=== PATIENT | male | born 1960 | race Two or more races ===

== ENCOUNTER 2017-09-14 03:02 | Inpatient (IN) | payer OTHER ==
[2017-09-14] VITALS (10 sets, daily range): BP systolic 116–151; BP diastolic 61–81
[~2017-09-14] VITALS: Ht 170.2 cm; Wt 77.1 kg
[2017-09-14] MEDS: MAGNESIUM SULFATE 1GM/100ML 100 ML IV SCH ×2 (03:10→04:41)
[2017-09-14] MEDS ORDERED: MAGNESIUM SULFATE 1GM/100ML 200 ML IV ONE (03:11)
[2017-09-14] MEDS ORDERED: methylPREDNISolone SOD SUCC 125 MG/2 ML VL ONE (03:11)
[2017-09-14] MEDS ORDERED: cefTRIAXone SOD 1,000 MG VL ONE (03:11)
[2017-09-14] MEDS ORDERED: IPRATROPIUM BROM 0.5 MG/2.5ML INH SOL ONE (03:14)
[2017-09-14] MEDS ORDERED: ALBUTEROL SULF 2.5 MG/0.5ML(0.5%) NEB SOLN ONE (03:14)
[2017-09-14] MEDS ORDERED: cefTRIAXone 1GM/10ml IVPUSH 10 ML IV ONE (03:30)
[2017-09-14] MEDS ORDERED: methylPREDNISolone SOD SUCC 125 MG/2 ML VL IV ONE (03:30)
[2017-09-14] MEDS ORDERED: SUCCINYLCHOLINE CHLORIDE 20 MG/ML 10ML VIAL IV ONE ×2 (03:38→04:15)
[2017-09-14] MEDS ORDERED: PROPOFOL 100 ML IV ONE (03:38)
[2017-09-14] MEDS: PROPOFOL 100 ML IV SCH (03:40)
[2017-09-14] MEDS ORDERED: PROPOFOL 100 ML IV SCH (03:46)
[2017-09-14] MEDS ORDERED: MAGNESIUM SULFATE 1GM/100ML 100 ML IV SCH (04:00)
[2017-09-14] MEDS ORDERED: MIDAZOLAM DRIP 50 mg/50mL 50 ML IV ONE (04:22)
[2017-09-14] MEDS: MIDAZOLAM DRIP 50 mg/50mL 50 ML IV SCH ×2 (04:44→06:50)
[2017-09-14] MEDS ORDERED: FUROSEMIDE 40 MG/4 ML VIAL IV ONE ×2 (04:45→06:30)
[2017-09-14 04:50] LABS: Basophils # (auto) 0.1 uL; Basophils % (auto) 0.5 % (0.0-2.0); Eosinophils # (auto) 0.5 uL; Eosinophils % (auto) 2.3 % (0.0-7.0); Hematocrit 31.2 % (41.0-53.0); Hemoglobin 10.3 g/dL (13.5-17.5); Lymphocytes # (auto) 4.3 uL; Lymphocytes % (auto) 20.8 % (10.0-50.0); Mean Corpuscular Hemoglobin 30.3 pg (28.0-32.0); Mean Corpuscular Hgb Conc. 33.1 g/dL (32.0-36.0); Mean Corpuscular Volume 91.6 fL (80.0-100.0); Monocytes # (auto) 1.1 uL; Monocytes % (auto) 5.5 % (0.0-12.0); Neutrophils # (auto) 14.7 uL; Neutrophils % (auto) 70.9 % (37.0-80.0); Platelet Count (auto) 277 10^3/uL (140-450); Red Cell Distribution Width 15.3 % (11.8-14.3); White Blood Cell 20.8 10^3/uL (4.4-10.8)
[2017-09-14 05:14] LABS: Urine Bacteria MANY /hpf (None Seen); Urine Blood TRACE /uL (Negative); Urine WBC 7 /hpf (0 - 3)
[2017-09-14 05:18] LABS: Albumin 3.4 g/dL (3.4-5.0); BUN/Creatinine Ratio 19.4; Bilirubin, Total 0.3 mg/dL (0.2-1.0); Magnesium 2.7 mg/dL (1.6-2.6); Potassium 3.8 mmol/L (3.5-5.1); Total Protein 7.1 g/dL (6.4-8.2)
[2017-09-14] MEDS ORDERED: LISI40TA PO (05:33)
[2017-09-14] MEDS ORDERED: ONDA4TAB5 PO (05:33)
[2017-09-14] MEDS ORDERED: FURO20TA PO (05:33)
[2017-09-14] MEDS ORDERED: METF-372 PO (05:33)
[2017-09-14] MEDS ORDERED: CLO01T PO (05:33)
[2017-09-14] MEDS ORDERED: ATO40T PO (05:33)
[2017-09-14] MEDS ORDERED: ATEN100T PO (05:33)
[2017-09-14] MEDS ORDERED: DEXTROSE (50%) 50ML SYRG IV PRN (06:30)
[2017-09-14] MEDS: DOXYCYCLINE 100MG/250ML 250 ML IV SCH ×2 (09:53→20:35)
[2017-09-14] MEDS ORDERED: ENOXAPARIN SOD 30 MG/0.3 ML SYRINGE SC SCH (10:00)
[2017-09-14] MEDS: PANTOPRAZOLE 40 MG/10 ML VIAL IV SCH (10:51)
[2017-09-14] MEDS: LISINOPRIL 20 MG TAB PO SCH (10:52)
[2017-09-14] MEDS: ACCU-CHEK COMFORT CURVE STRIP VI SCH ×2 (12:30→18:25)
[2017-09-14] MEDS: InsuLIN REG 1unit/0.01ml Soln (100units/ml) SC SCH ×2 (12:46→18:26)
[2017-09-14] MEDS ORDERED: VANCOMYCIN PER PHARMACY 0 MG IV SCH (15:30)
[2017-09-14] MEDS ORDERED: VANCOMYCIN 1GM/250ML 250 ML IV ONE (15:30)
[2017-09-14] MEDS ORDERED: LEVOFLOXACIN 500MG 100 ML IV ONE (15:30)
[2017-09-14 15:41] LABS: Basophils # (auto) 0 uL; Basophils % (auto) 0.1 % (0.0-2.0); Eosinophils # (auto) 0 uL; Hematocrit 27.9 % (41.0-53.0); Hemoglobin 9.6 g/dL (13.5-17.5); Lymphocytes # (auto) 0.5 uL; Lymphocytes % (auto) 5.1 % (10.0-50.0); Mean Corpuscular Hemoglobin 30.8 pg (28.0-32.0); Mean Corpuscular Hgb Conc. 34.5 g/dL (32.0-36.0); Mean Corpuscular Volume 89.4 fL (80.0-100.0); Monocytes # (auto) 0.2 uL; Monocytes % (auto) 1.8 % (0.0-12.0); Neutrophils # (auto) 8.8 uL; Platelet Count (auto) 219 10^3/uL (140-450); Red Blood Cells 3.12 10^6/uL (4.5-5.90); Red Cell Distribution Width 15.2 % (11.8-14.3); White Blood Cell 9.5 10^3/uL (4.4-10.8)
[2017-09-14 16:04] LABS: Albumin 2.8 g/dL (3.4-5.0); Bilirubin, Total 0.3 mg/dL (0.2-1.0); Calcium 8.2 mg/dL (8.5-10.1); Potassium 4.2 mmol/L (3.5-5.1); Total Protein 6.2 g/dL (6.4-8.2)
[2017-09-14] MEDS: ENOXAPARIN SOD 60 MG/0.6 ML SYRINGE SC SCH (16:13)
[2017-09-14] MEDS: ATORVASTATIN 20 MG TAB PO SCH (21:43)
[2017-09-14] MEDS: CARVEDILOL 3.125 MG TAB NG SCH (21:43)
[2017-09-15] VITALS (12 sets, daily range): BP systolic 107–156; BP diastolic 67–85
[2017-09-15] MEDS: PROPOFOL 100 ML IV SCH ×3 (03:50→17:34)
[2017-09-15] MEDS: ENOXAPARIN SOD 60 MG/0.6 ML SYRINGE SC SCH ×2 (03:50→15:26)
[2017-09-15] MEDS: ACCU-CHEK COMFORT CURVE STRIP VI SCH ×4 (05:37→17:40)
[2017-09-15] MEDS: InsuLIN REG 1unit/0.01ml Soln (100units/ml) SC SCH ×4 (05:44→17:40)
[2017-09-15 06:39] LABS: Basophils # (auto) 0 uL; Basophils % (auto) 0.2 % (0.0-2.0); Eosinophils # (auto) 0 uL; Eosinophils % (auto) 0.1 % (0.0-7.0); Hematocrit 27.7 % (41.0-53.0); Hemoglobin 9.5 g/dL (13.5-17.5); Lymphocytes # (auto) 1.4 uL; Lymphocytes % (auto) 8.6 % (10.0-50.0); Mean Corpuscular Hemoglobin 30.5 pg (28.0-32.0); Mean Corpuscular Hgb Conc. 34.4 g/dL (32.0-36.0); Mean Corpuscular Volume 88.7 fL (80.0-100.0); Monocytes # (auto) 1.7 uL; Monocytes % (auto) 10.4 % (0.0-12.0); Neutrophils # (auto) 13.6 uL; Neutrophils % (auto) 80.7 % (37.0-80.0); Platelet Count (auto) 218 10^3/uL (140-450); Red Blood Cells 3.12 10^6/uL (4.5-5.90); Red Cell Distribution Width 15.9 % (11.8-14.3); White Blood Cell 16.8 10^3/uL (4.4-10.8)
[2017-09-15 06:58] LABS: Albumin 2.7 g/dL (3.4-5.0); Calcium 8.2 mg/dL (8.5-10.1); Potassium 3.7 mmol/L (3.5-5.1)
[2017-09-15 07:01] LABS: BUN/Creatinine Ratio 20.8
[2017-09-15 07:04] LABS: Bilirubin, Total 0.4 mg/dL (0.2-1.0); Total Protein 6.1 g/dL (6.4-8.2)
[2017-09-15] MEDS: MIDAZOLAM DRIP 50 mg/50mL 50 ML IV SCH ×3 (07:57→17:34)
[2017-09-15] MEDS: DOXYCYCLINE 100MG/250ML 250 ML IV SCH (08:05)
[2017-09-15] MEDS: VANCOMYCIN 1GM/250ML 250 ML IV SCH (08:28)
[2017-09-15] MEDS: FUROSEMIDE 40 MG/4 ML VIAL IV SCH (09:23)
[2017-09-15] MEDS: PANTOPRAZOLE 40 MG/10 ML VIAL IV SCH (09:24)
[2017-09-15] MEDS: LISINOPRIL 20 MG TAB PO SCH (09:24)
[2017-09-15] MEDS: LEVOFLOXACIN 250MG 50 ML IV SCH (09:24)
[2017-09-15] MEDS: CARVEDILOL 3.125 MG TAB NG SCH ×2 (09:24→22:12)
[2017-09-15] MEDS ORDERED: ACETAMINOPHEN 650 mg PER 20 mL UD GT ONE (20:45)
[2017-09-15] MEDS: ATORVASTATIN 20 MG TAB PO SCH (22:13)
[2017-09-16] VITALS (12 sets, daily range): BP systolic 128–182; BP diastolic 72–98
[2017-09-16] MEDS: ACCU-CHEK COMFORT CURVE STRIP VI SCH ×4 (00:12→18:02)
[2017-09-16] MEDS: ENOXAPARIN SOD 60 MG/0.6 ML SYRINGE SC SCH ×2 (04:36→16:00)
[2017-09-16 05:54] LABS: Basophils # (auto) 0.1 uL; Basophils % (auto) 0.4 % (0.0-2.0); Eosinophils # (auto) 0.2 uL; Eosinophils % (auto) 1.3 % (0.0-7.0); Hematocrit 30.1 % (41.0-53.0); Hemoglobin 10.2 g/dL (13.5-17.5); Lymphocytes # (auto) 1.8 uL; Lymphocytes % (auto) 12.8 % (10.0-50.0); Mean Corpuscular Hemoglobin 30.4 pg (28.0-32.0); Mean Corpuscular Hgb Conc. 33.8 g/dL (32.0-36.0); Mean Corpuscular Volume 89.9 fL (80.0-100.0); Monocytes # (auto) 1.6 uL; Monocytes % (auto) 11.8 % (0.0-12.0); Neutrophils # (auto) 10.1 uL; Neutrophils % (auto) 73.7 % (37.0-80.0); Platelet Count (auto) 228 10^3/uL (140-450); Red Blood Cells 3.35 10^6/uL (4.5-5.90); Red Cell Distribution Width 15.9 % (11.8-14.3); White Blood Cell 13.8 10^3/uL (4.4-10.8)
[2017-09-16] MEDS: InsuLIN REG 1unit/0.01ml Soln (100units/ml) SC SCH ×4 (06:00→18:00)
[2017-09-16 06:21] LABS: Albumin 2.8 g/dL (3.4-5.0); Calcium 8.7 mg/dL (8.5-10.1); Potassium 4.1 mmol/L (3.5-5.1)
[2017-09-16 06:23] LABS: BUN/Creatinine Ratio 19.7; Total Protein 6.3 g/dL (6.4-8.2)
[2017-09-16 06:26] LABS: Bilirubin, Total 0.4 mg/dL (0.2-1.0)
[2017-09-16] MEDS: VANCOMYCIN 1GM/250ML 250 ML IV SCH (08:51)
[2017-09-16] MEDS: ALBUTEROL SULF 2.5 MG/0.5ML(0.5%) NEB SOLN NEB SCH ×4 (10:17→22:25)
[2017-09-16] MEDS: IPRATROPIUM BROM 0.5 MG/2.5ML INH SOL NEB SCH ×4 (10:17→22:25)
[2017-09-16] MEDS: PANTOPRAZOLE 40 MG/10 ML VIAL IV SCH (12:11)
[2017-09-16] MEDS: CARVEDILOL 3.125 MG TAB NG SCH ×2 (12:11→22:48)
[2017-09-16] MEDS: FUROSEMIDE 40 MG/4 ML VIAL IV SCH (12:11)
[2017-09-16] MEDS: LISINOPRIL 20 MG TAB PO SCH (12:12)
[2017-09-16] MEDS: LEVOFLOXACIN 250MG 50 ML IV SCH (12:13)
[2017-09-16] MEDS: LABETALOL HCL 5 MG/ML ML 20ML VIAL IV PRN (15:30)
[2017-09-16] MEDS ORDERED: ACETAMINOPHEN 650 mg PER 20 mL UD ONE (18:34)
[2017-09-16] MEDS ORDERED: ACETAMINOPHEN 650 mg PER 20 mL UD GT PRN (18:45)
[2017-09-16] MEDS: MIDAZOLAM HCL 1MG/1ML-2 ML VIAL IV PRN ×2 (19:43→23:19)
[2017-09-16] MEDS ORDERED: IBUPROFEN 600 MG TAB PO ONE ×2 (21:56→22:00)
[2017-09-16] MEDS: ATORVASTATIN 20 MG TAB PO SCH (22:48)
[2017-09-17] VITALS (7 sets, daily range): BP systolic 100–188; BP diastolic 53–95
[2017-09-17] MEDS: ACCU-CHEK COMFORT CURVE STRIP VI SCH ×4 (00:29→18:00)
[2017-09-17] MEDS: MIDAZOLAM HCL 1MG/1ML-2 ML VIAL IV PRN (02:00)
[2017-09-17] MEDS: ALBUTEROL SULF 2.5 MG/0.5ML(0.5%) NEB SOLN NEB SCH ×6 (02:32→22:27)
[2017-09-17] MEDS: IPRATROPIUM BROM 0.5 MG/2.5ML INH SOL NEB SCH ×6 (02:32→22:27)
[2017-09-17] MEDS: MIDAZOLAM DRIP 50 mg/50mL 50 ML IV SCH (03:58)
[2017-09-17] MEDS: ENOXAPARIN SOD 60 MG/0.6 ML SYRINGE SC SCH ×2 (04:01→17:06)
[2017-09-17 04:58] LABS: Basophils # (auto) 0.3 uL; Basophils % (auto) 2.2 % (0.0-2.0); Eosinophils # (auto) 0.4 uL; Eosinophils % (auto) 2.7 % (0.0-7.0); Hematocrit 32.8 % (41.0-53.0); Hemoglobin 11.5 g/dL (13.5-17.5); Lymphocytes # (auto) 1.6 uL; Lymphocytes % (auto) 12.3 % (10.0-50.0); Mean Corpuscular Hemoglobin 31.6 pg (28.0-32.0); Mean Corpuscular Hgb Conc. 35.1 g/dL (32.0-36.0); Mean Corpuscular Volume 90.2 fL (80.0-100.0); Monocytes # (auto) 1.5 uL; Monocytes % (auto) 11.6 % (0.0-12.0); Neutrophils # (auto) 9.2 uL; Neutrophils % (auto) 71.2 % (37.0-80.0); Platelet Count (auto) 233 10^3/uL (140-450); Red Blood Cells 3.64 10^6/uL (4.5-5.90); Red Cell Distribution Width 15.6 % (11.8-14.3)
[2017-09-17] MEDS: PROPOFOL 100 ML IV SCH (04:59)
[2017-09-17 05:17] LABS: Albumin 2.6 g/dL (3.4-5.0); Potassium 3.9 mmol/L (3.5-5.1)
[2017-09-17 05:20] LABS: BUN/Creatinine Ratio 19.1
[2017-09-17 05:26] LABS: Bilirubin, Total 0.9 mg/dL (0.2-1.0)
[2017-09-17 05:35] LABS: Total Protein 6.6 g/dL (6.4-8.2)
[2017-09-17] MEDS: InsuLIN REG 1unit/0.01ml Soln (100units/ml) SC SCH ×4 (06:00→18:00)
[2017-09-17] MEDS: FUROSEMIDE 40 MG/4 ML VIAL IV SCH (09:19)
[2017-09-17] MEDS: VANCOMYCIN 1GM/250ML 250 ML IV SCH (09:19)
[2017-09-17] MEDS: CARVEDILOL 3.125 MG TAB NG SCH ×2 (09:19→21:36)
[2017-09-17] MEDS: PANTOPRAZOLE 40 MG/10 ML VIAL IV SCH (09:19)
[2017-09-17] MEDS: LEVOFLOXACIN 250MG 50 ML IV SCH (09:19)
[2017-09-17] MEDS: LISINOPRIL 20 MG TAB PO SCH (09:20)
[2017-09-17] MEDS: LABETALOL HCL 5 MG/ML ML 20ML VIAL IV PRN ×2 (12:19→17:49)
[2017-09-17] MEDS: LORazepam 2MG/ML-1ML VIAL IV PRN (17:05)
[2017-09-17] MEDS: ATORVASTATIN 20 MG TAB PO SCH (21:36)
[2017-09-18] MEDS: ACCU-CHEK COMFORT CURVE STRIP VI SCH ×4 (00:13→18:09)
[2017-09-18] MEDS: ALBUTEROL SULF 2.5 MG/0.5ML(0.5%) NEB SOLN NEB SCH ×6 (02:18→22:54)
[2017-09-18] MEDS: IPRATROPIUM BROM 0.5 MG/2.5ML INH SOL NEB SCH ×6 (02:18→22:54)
[2017-09-18] MEDS: PROPOFOL 100 ML IV SCH (03:33)
[2017-09-18] MEDS: MIDAZOLAM DRIP 50 mg/50mL 50 ML IV SCH (03:33)
[2017-09-18] MEDS: ENOXAPARIN SOD 60 MG/0.6 ML SYRINGE SC SCH (03:34)
[2017-09-18 04:49] VITALS: BP 168/84
[2017-09-18] MEDS: InsuLIN REG 1unit/0.01ml Soln (100units/ml) SC SCH ×4 (05:45→18:09)
[2017-09-18] MEDS: LABETALOL HCL 5 MG/ML ML 20ML VIAL IV PRN ×2 (05:46→21:51)
[2017-09-18 05:53] LABS: Basophils # (auto) 0.1 uL; Basophils % (auto) 0.5 % (0.0-2.0); Eosinophils # (auto) 0.3 uL; Eosinophils % (auto) 2.6 % (0.0-7.0); Hematocrit 33.2 % (41.0-53.0); Hemoglobin 11.3 g/dL (13.5-17.5); Lymphocytes # (auto) 1.6 uL; Lymphocytes % (auto) 14.3 % (10.0-50.0); Mean Corpuscular Hemoglobin 30.3 pg (28.0-32.0); Monocytes # (auto) 1.4 uL; Monocytes % (auto) 12.6 % (0.0-12.0); Neutrophils # (auto) 7.9 uL; Platelet Count (auto) 249 10^3/uL (140-450); Red Blood Cells 3.73 10^6/uL (4.5-5.90); Red Cell Distribution Width 15.3 % (11.8-14.3); White Blood Cell 11.3 10^3/uL (4.4-10.8)
[2017-09-18 06:28] LABS: Albumin 3.1 g/dL (3.4-5.0); BUN/Creatinine Ratio 25.3; Bilirubin, Total 0.7 mg/dL (0.2-1.0); Calcium 8.9 mg/dL (8.5-10.1); Potassium 3.5 mmol/L (3.5-5.1); Total Protein 7.1 g/dL (6.4-8.2)
[2017-09-18 09:00] VITALS: BP 165/91
[2017-09-18] MEDS: PANTOPRAZOLE 40 MG/10 ML VIAL IV SCH (09:37)
[2017-09-18] MEDS: LISINOPRIL 20 MG TAB PO SCH (09:39)
[2017-09-18] MEDS: CARVEDILOL 3.125 MG TAB NG SCH ×2 (09:40→21:50)
[2017-09-18] MEDS: FUROSEMIDE 20 MG/2 ML VIAL IV SCH (09:44)
[2017-09-18] MEDS: LINEZOLID 600MG/300ML 300 ML IV SCH ×2 (10:00→21:49)
[2017-09-18] MEDS ORDERED: IOHEXOL 350 MG/ML 100ML IJ ONE (11:49)
[2017-09-18] MEDS ORDERED: LIDOCAINE 2%HCL (LOCAL ANESTH.) INJ 20ML MDV ONE (11:49)
[2017-09-18 11:51] VITALS: BP 149/79
[2017-09-18] MEDS: LORazepam 2MG/ML-1ML VIAL IV PRN ×2 (12:45→21:51)
[2017-09-18] MEDS ORDERED: fentaNYL CITRATE 100 MCG/2 ML VL ONE (14:41)
[2017-09-18] MEDS ORDERED: IODIXANOL 320MG/ML 100ML BTL IV ONE (14:47)
[2017-09-18 16:24] VITALS: BP 166/93
[2017-09-18 21:32] VITALS: BP 164/96
[2017-09-18] MEDS: ATORVASTATIN 20 MG TAB PO SCH (21:50)
[2017-09-19] MEDS: InsuLIN REG 1unit/0.01ml Soln (100units/ml) SC SCH ×4 (00:44→18:00)
[2017-09-19] MEDS: IPRATROPIUM BROM 0.5 MG/2.5ML INH SOL NEB SCH ×5 (02:00→18:35)
[2017-09-19] MEDS: ALBUTEROL SULF 2.5 MG/0.5ML(0.5%) NEB SOLN NEB SCH ×5 (02:00→18:35)
[2017-09-19 05:09] VITALS: BP 164/81
[2017-09-19 05:20] LABS: Basophils # (auto) 0.1 uL; Basophils % (auto) 0.4 % (0.0-2.0); Eosinophils # (auto) 0.4 uL; Eosinophils % (auto) 3.4 % (0.0-7.0); Hematocrit 32.8 % (41.0-53.0); Hemoglobin 10.9 g/dL (13.5-17.5); Lymphocytes # (auto) 1.4 uL; Lymphocytes % (auto) 12.4 % (10.0-50.0); Mean Corpuscular Hgb Conc. 33.2 g/dL (32.0-36.0); Mean Corpuscular Volume 90.5 fL (80.0-100.0); Monocytes # (auto) 1.4 uL; Monocytes % (auto) 12.3 % (0.0-12.0); Neutrophils # (auto) 8.2 uL; Neutrophils % (auto) 71.5 % (37.0-80.0); Platelet Count (auto) 257 10^3/uL (140-450); Red Blood Cells 3.62 10^6/uL (4.5-5.90); Red Cell Distribution Width 14.7 % (11.8-14.3); White Blood Cell 11.5 10^3/uL (4.4-10.8)
[2017-09-19 05:40] LABS: Albumin 3.1 g/dL (3.4-5.0); Calcium 8.8 mg/dL (8.5-10.1); Potassium 3.2 mmol/L (3.5-5.1)
[2017-09-19 05:43] LABS: Bilirubin, Total 0.7 mg/dL (0.2-1.0); Total Protein 7.5 g/dL (6.4-8.2)
[2017-09-19] MEDS: ACCU-CHEK COMFORT CURVE STRIP VI SCH ×4 (06:17→18:00)
[2017-09-19] MEDS: LABETALOL HCL 5 MG/ML ML 20ML VIAL IV PRN (06:18)
[2017-09-19 08:26] VITALS: BP 105/63
[2017-09-19] MEDS ORDERED: POTASSIUM CHL 10% (20 MEQ/15ML) 15ml ORAL SOLN PO ONE (11:00)
[2017-09-19] MEDS: LINEZOLID 600MG/300ML 300 ML IV SCH (11:19)
[2017-09-19] MEDS: CARVEDILOL 3.125 MG TAB NG SCH (11:19)
[2017-09-19] MEDS: PANTOPRAZOLE 40 MG/10 ML VIAL IV SCH (11:19)
[2017-09-19] MEDS: FUROSEMIDE 20 MG/2 ML VIAL IV SCH (11:19)
[2017-09-19] MEDS: LISINOPRIL 20 MG TAB PO SCH (11:20)
[2017-09-19 12:07] VITALS: BP 126/70
[2017-09-19 16:06] VITALS: BP 121/68
[2017-09-19 20:06] VITALS: BP 121/68
== END 2017-09-19 21:00 | disposition short-term general hospital (02) | DRG 871 ==
LOC: EDBD 03:02 → ER 03:02 → TELE 03:03 → TELE-EAST 09-17 18:02
PROVIDERS: ADMIT Nurse Practitioner Family; ATTEND Family Medicine
PROC: 5A1945Z Respiratory Ventilation, 24-96 Consecutive Hours (ICD-10-PCS; principal; 2017-09-14)
PROC: 0BH17EZ Insertion of Endotracheal Airway into Trachea, Via Natural or Artificial Opening (ICD-10-PCS; 2017-09-14)
PROC: B2151ZZ Fluoroscopy of Left Heart using Low Osmolar Contrast (ICD-10-PCS; 2017-09-18)
PROC: 4A023N7 Measurement of Cardiac Sampling and Pressure, Left Heart, Percutaneous Approach (ICD-10-PCS; 2017-09-18)
PROC: B2111ZZ Fluoroscopy of Multiple Coronary Arteries using Low Osmolar Contrast (ICD-10-PCS; 2017-09-18)
DX: A41.1 Sepsis due to other specified staphylococcus (principal); R65.21 Severe sepsis with septic shock; J96.02 Acute respiratory failure with hypercapnia; J18.9 Pneumonia, unspecified organism; I50.33 Acute on chronic diastolic (congestive) heart failure; E87.2 Acidosis; M86.671 Other chronic osteomyelitis, right ankle and foot; L97.828 Non-pressure chronic ulcer of other part of left lower leg with other specified severity; L97.818 Non-pressure chronic ulcer of other part of right lower leg with other specified severity; I11.0 Hypertensive heart disease with heart failure; I25.5 Ischemic cardiomyopathy; E11.65 Type 2 diabetes mellitus with hyperglycemia; E11.51 Type 2 diabetes mellitus with diabetic peripheral angiopathy without gangrene; E11.622 Type 2 diabetes mellitus with other skin ulcer; E78.5 Hyperlipidemia, unspecified; D64.9 Anemia, unspecified; F41.9 Anxiety disorder, unspecified; I25.10 Atherosclerotic heart disease of native coronary artery without angina pectoris; E11.69 Type 2 diabetes mellitus with other specified complication; R79.1 Abnormal coagulation profile; Z87.01 Personal history of pneumonia (recurrent); Z82.49 Family history of ischemic heart disease and other diseases of the circulatory system; Z79.84 Long term (current) use of oral hypoglycemic drugs; Z79.899 Other long term (current) drug therapy
CPT/HCPCS: 31500; 36415; 36600; 51702; 71045; 73700; 73718; 80053; 80202; 81001; 82805; 82962; 83036; 83605; 83735; 83880; 84484; 85025; 85379; 86850; 86900; 86901; 87040; 87070; 87077; 87186; 87205; 93306; 93458; 93970; 94002; 94003; 94640; 96365; 96375; 97163; 99152; 99291; C9113; J0330; J0696; J1815; J1956; J2250; J2704; J3490; Q9967

== ENCOUNTER → 2019-02-24 | Outpatient (CLI) | payer OTHER ==
[~2019-02-24] MED LIST: ATEN100T PO; ATO40T PO; CLO01T PO; FURO1TAB33 PO; LISI40TA PO; METF-372 PO; ONDA-144 PO
[2019-02-24 07:40] LABS: Basophils # (auto) 0.1 uL; Basophils % (auto) 0.7 % (0.0-2.0); Eosinophils # (auto) 0.4 uL; Eosinophils % (auto) 3.8 % (0.0-7.0); Hematocrit 37.3 % (41.0-53.0); Hemoglobin 12.6 g/dL (13.5-17.5); Lymphocytes # (auto) 1.7 uL; Mean Corpuscular Hemoglobin 30.3 pg (28.0-32.0); Mean Corpuscular Hgb Conc. 33.6 g/dL (32.0-36.0); Mean Corpuscular Volume 90.1 fL (80.0-100.0); Monocytes % (auto) 9.2 % (0.0-12.0); Neutrophils # (auto) 7.3 uL; Neutrophils % (auto) 70.3 % (37.0-80.0); Platelet Count (auto) 225 10^3/uL (140-450); Red Blood Cells 4.14 10^6/uL (4.5-5.90); Red Cell Distribution Width 13.1 % (11.8-14.3); White Blood Cell 10.4 10^3/uL (4.4-10.8)
[2019-02-24 07:47] LABS: Urine Bacteria MANY /hpf (None Seen); Urine Blood TRACE /uL (Negative); Urine Mucus FEW (None Seen); Urine Specific Gravity 1.009 (1.001-1.035); Urine WBC 1 /hpf (0 - 3)
[2019-02-24 08:28] LABS: Albumin 3.2 g/dL (3.4-5.0); Calcium 8.9 mg/dL (8.5-10.1); Potassium 4.4 mmol/L (3.5-5.1)
[2019-02-24 08:34] LABS: Folate (Folic Acid) 10.93 ng/mL (5.38-24)
[2019-02-24 08:35] LABS: Bilirubin, Total 0.7 mg/dL (0.2-1.0); Total Protein 7.2 g/dL (6.4-8.2)
== END | disposition home or self-care (01) ==
LOC: LAB 07:24
PROVIDERS: ATTEND Nurse Practitioner
DX: Z00.00 Encounter for general adult medical examination without abnormal findings (principal); E78.5 Hyperlipidemia, unspecified; E11.9 Type 2 diabetes mellitus without complications; I10 Essential (primary) hypertension
CPT/HCPCS: 36415; 80053; 80061; 81001; 82043; 82306; 82607; 82746; 83036; 83880; 84443; 85025

== ENCOUNTER → 2020-04-12 | Outpatient (CLI) | payer MEDICARE, OTHER ==
[~2020-04-12] MED LIST changes: -LISI40TA PO; +LISI40TA11 PO
== END | disposition home or self-care (01) ==
LOC: XY 09:58
PROVIDERS: ATTEND Podiatrist
DX: I70.201 Unspecified atherosclerosis of native arteries of extremities, right leg (principal); I77.9 Disorder of arteries and arterioles, unspecified
CPT/HCPCS: 93925

== ENCOUNTER → 2020-04-25 | Outpatient (CLI) | payer MEDICARE, OTHER ==
[~2020-04-25] MED LIST changes: +FUROSEMIDE 100 MG/10ML VIAL IV ONE; +FUROSEMIDE INJECTION 10 ML ONE; +POTASSIUM CHL 10 Meq TABLET PO ONE
[2020-04-25 10:55] VITALS: BP 154/100
[2020-04-25 13:10] VITALS: BP 145/89
[2020-04-25 15:22] LABS: Urine Blood 1+ /uL (Negative); Urine Specific Gravity 1.018 (1.001-1.035)
[2020-04-25 15:33] LABS: Albumin 1.9 g/dL (3.4-5.0)
[2020-04-25 15:41] LABS: Bilirubin, Direct 0.3 mg/dL (0-0.2); Bilirubin, Total 0.7 mg/dL (0.2-1.0); Total Protein 6.7 g/dL (6.4-8.2)
[2020-04-25 15:45] LABS: Basophils # (auto) 0 10 ^3/uL (0-0.2); Basophils % (auto) 0.3 % (0.0-2.0); Eosinophils # (auto) 0.1 10 ^3/uL (0-0.8); Eosinophils % (auto) 1.4 % (0.0-7.0); Hemoglobin 15.3 g/dL (13.5-17.5); Lymphocytes % (auto) 10.7 % (10.0-50.0); Mean Corpuscular Hemoglobin 30.5 pg (28.0-32.0); Mean Corpuscular Hgb Conc. 33.3 g/dL (32.0-36.0); Mean Corpuscular Volume 91.7 fL (80.0-100.0); Monocytes # (auto) 0.9 10 ^3/uL (0-1.3); Monocytes % (auto) 9.7 % (0.0-12.0); Neutrophils # (auto) 7.5 10 ^3/uL (1.6-8.6); Neutrophils % (auto) 77.9 % (37.0-80.0); Platelet Count (auto) 282 10^3/uL (140-450); Red Blood Cells 5.02 10^6/uL (4.5-5.90); Red Cell Distribution Width 14.2 % (11.8-14.3); White Blood Cell 9.6 10^3/uL (4.4-10.8)
== END | disposition home or self-care (01) ==
LOC: Rad HDHVI 10:53
PROVIDERS: ATTEND Internal Medicine Cardiovascular Disease
DX: C61 Malignant neoplasm of prostate (principal); D51.3 Other dietary vitamin B12 deficiency anemia; I11.0 Hypertensive heart disease with heart failure; I50.33 Acute on chronic diastolic (congestive) heart failure; E11.9 Type 2 diabetes mellitus without complications; E55.9 Vitamin D deficiency, unspecified; R00.2 Palpitations; R53.1 Weakness; R30.0 Dysuria
CPT/HCPCS: 36415; 80048; 80061; 80076; 81003; 82306; 83036; 83880; 84153; 84403; 84443; 85025; 93306; 96374; G0463; J1940

== ENCOUNTER → 2020-04-27 | Outpatient (CLI) | payer MEDICARE, OTHER ==
[~2020-04-27] VITALS: Ht 172.7 cm; Wt 92.5 kg
[~2020-04-27] MED LIST changes: +ADENOSINE 78 MG in GIVE UN-DILUTED 0 ML IV ONE; +ADENOSINE 90 MG/30 ML INJ IV ONE; +CARV6.2551 PO; +CLIN-203 PO; +CLOP75TA70 PO; +DIGO0.12 PO; +FURO40TA4 PO; -FUROSEMIDE 100 MG/10ML VIAL IV ONE; -FUROSEMIDE INJECTION 10 ML ONE; +HYDR200T36 PO; +METO5TAB5 PO; +POTA-220; -POTASSIUM CHL 10 Meq TABLET PO ONE; +SACU1TAB PO; +SERT25TA14 PO
== END | disposition home or self-care (01) ==
LOC: Rad HDHVI 13:23
PROVIDERS: ATTEND Internal Medicine Cardiovascular Disease
DX: I10 Essential (primary) hypertension (principal); E78.00 Pure hypercholesterolemia, unspecified; E11.9 Type 2 diabetes mellitus without complications; Z82.49 Family history of ischemic heart disease and other diseases of the circulatory system
CPT/HCPCS: 78452; 93005; 96374; 96375; A9500; J0153

== ENCOUNTER → 2020-05-09 | Outpatient (CLI) | payer MEDICARE ==
[~2020-05-09] MED LIST changes: -ADENOSINE 78 MG in GIVE UN-DILUTED 0 ML IV ONE; -ADENOSINE 90 MG/30 ML INJ IV ONE; -CARV6.2551 PO; -CLIN-203 PO; -CLOP75TA70 PO; +CYANOCOBALAMIN (B-12) 1000 MCG/1 ML VIAL IM ONE; +CYANOCOBALAMIN (B-12) 1000 MCG/1 ML VIAL ONE; -DIGO0.12 PO; -FURO40TA4 PO; +FUROSEMIDE INJECTION 10 ML ONE; +FUROSEMIDE INJECTION 100 MG in SODIUM CHL 0.9% 100 ML IV ONE; -HYDR200T36 PO; -METO5TAB5 PO; +ONDANSETRON HCL 4 MG/2 ML VIAL IV ONE; +ONDANSETRON HCL 4 MG/2 ML VIAL ONE; -POTA-220; +POTASSIUM CHL 10 Meq TABLET PO ONE; +POTASSIUM CHL 20 Meq TABLET PO ONE; -SACU1TAB PO; -SERT25TA14 PO; +TESTOSTERONE CYPIONATE 200 MG/ML 1ML VIAL IM ONE
[2020-05-09 13:17] VITALS: BP 148/95
[2020-05-09 14:00] LABS: Albumin 1.7 g/dL (3.4-5.0); Calcium 8.1 mg/dL (8.5-10.1); Magnesium 2.3 mg/dL (1.6-2.6)
[2020-05-09 14:03] LABS: BUN/Creatinine Ratio 16.1; Bilirubin, Total 0.6 mg/dL (0.2-1.0); Total Protein 6.3 g/dL (6.4-8.2)
[2020-05-09 14:13] LABS: Basophils # (auto) 0 10 ^3/uL (0-0.2); Basophils % (auto) 0.4 % (0.0-2.0); Eosinophils # (auto) 0.8 10 ^3/uL (0-0.8); Eosinophils % (auto) 8.8 % (0.0-7.0); Hematocrit 40.9 % (41.0-53.0); Hemoglobin 13.7 g/dL (13.5-17.5); Lymphocytes # (auto) 0.8 10 ^3/uL (0.4-5.4); Lymphocytes % (auto) 9.2 % (10.0-50.0); Mean Corpuscular Hemoglobin 30.8 pg (28.0-32.0); Mean Corpuscular Hgb Conc. 33.6 g/dL (32.0-36.0); Mean Corpuscular Volume 91.9 fL (80.0-100.0); Monocytes # (auto) 0.8 10 ^3/uL (0-1.3); Monocytes % (auto) 9.3 % (0.0-12.0); Neutrophils # (auto) 6.4 10 ^3/uL (1.6-8.6); Neutrophils % (auto) 72.3 % (37.0-80.0); Platelet Count (auto) 334 10^3/uL (140-450); Red Blood Cells 4.45 10^6/uL (4.5-5.90); Red Cell Distribution Width 14.3 % (11.8-14.3); White Blood Cell 8.8 10^3/uL (4.4-10.8)
[2020-05-09 14:17] VITALS: BP 154/95
[2020-05-09 16:00] VITALS: BP 152/101
== END | disposition home or self-care (01) ==
LOC: CHF HDHVI 12:40
PROVIDERS: ATTEND Internal Medicine Cardiovascular Disease
DX: I11.0 Hypertensive heart disease with heart failure (principal); I50.23 Acute on chronic systolic (congestive) heart failure; E29.1 Testicular hypofunction; E11.9 Type 2 diabetes mellitus without complications; R53.83 Other fatigue; R11.0 Nausea
CPT/HCPCS: 36415; 71046; 80053; 83735; 83880; 85025; 93005; 96365; 96366; 96372; 96375; G0463; J1071; J1940; J2405; J3420

== ENCOUNTER → 2020-05-16 | Outpatient (CLI) | payer MEDICARE ==
[2020-05-16] VITALS (9 sets, daily range): BP systolic 138–180; BP diastolic 82–93
[~2020-05-16] MED LIST changes: -CYANOCOBALAMIN (B-12) 1000 MCG/1 ML VIAL IM ONE; -CYANOCOBALAMIN (B-12) 1000 MCG/1 ML VIAL ONE; +DOBUTamine 1000MCG/ML 250 ML IV ONE; +FUROSEMIDE 40 MG/4 ML VIAL ONE; -ONDANSETRON HCL 4 MG/2 ML VIAL IV ONE; -ONDANSETRON HCL 4 MG/2 ML VIAL ONE; -TESTOSTERONE CYPIONATE 200 MG/ML 1ML VIAL IM ONE
[2020-05-16 13:47] LABS: Basophils # (auto) 0.1 10 ^3/uL (0-0.2); Basophils % (auto) 0.6 % (0.0-2.0); Eosinophils # (auto) 0.7 10 ^3/uL (0-0.8); Eosinophils % (auto) 7.8 % (0.0-7.0); Hematocrit 39.7 % (41.0-53.0); Hemoglobin 13.3 g/dL (13.5-17.5); Lymphocytes % (auto) 10.7 % (10.0-50.0); Mean Corpuscular Hemoglobin 30.8 pg (28.0-32.0); Mean Corpuscular Hgb Conc. 33.6 g/dL (32.0-36.0); Mean Corpuscular Volume 91.7 fL (80.0-100.0); Monocytes # (auto) 0.9 10 ^3/uL (0-1.3); Monocytes % (auto) 9.6 % (0.0-12.0); Neutrophils # (auto) 6.8 10 ^3/uL (1.6-8.6); Neutrophils % (auto) 71.3 % (37.0-80.0); Nucleated Red Blood Cells % 0.1 %; Platelet Count (auto) 319 10^3/uL (140-450); Red Blood Cells 4.33 10^6/uL (4.5-5.90); Red Cell Distribution Width 15.3 % (11.8-14.3); White Blood Cell 9.6 10^3/uL (4.4-10.8)
[2020-05-16 13:58] LABS: Albumin 1.6 g/dL (3.4-5.0); Calcium 7.4 mg/dL (8.5-10.1); Magnesium 2.5 mg/dL (1.6-2.6); Potassium 4.3 mmol/L (3.5-5.1)
[2020-05-16 14:02] LABS: BUN/Creatinine Ratio 19.4; Bilirubin, Total 0.4 mg/dL (0.2-1.0); Total Protein 5.9 g/dL (6.4-8.2)
== END | disposition home or self-care (01) ==
LOC: CHF HDHVI 11:59
PROVIDERS: ATTEND Internal Medicine Cardiovascular Disease
DX: I11.0 Hypertensive heart disease with heart failure (principal); I50.23 Acute on chronic systolic (congestive) heart failure; D64.9 Anemia, unspecified; E11.9 Type 2 diabetes mellitus without complications; E78.00 Pure hypercholesterolemia, unspecified
CPT/HCPCS: 36415; 80053; 83735; 83880; 85025; 96365; 96366; 96367; G0463; J1250; J1940

== ENCOUNTER 2020-05-26 13:10 | Inpatient (IN) | payer MEDICARE ==
[~2020-05-26] VITALS: Ht 172.7 cm; Wt 79.3 kg
[~2020-05-26 13:10] MED LIST changes: -DOBUTamine 1000MCG/ML 250 ML IV ONE; -FUROSEMIDE 40 MG/4 ML VIAL ONE; -FUROSEMIDE INJECTION 10 ML ONE; -FUROSEMIDE INJECTION 100 MG in SODIUM CHL 0.9% 100 ML IV ONE; -POTASSIUM CHL 10 Meq TABLET PO ONE; -POTASSIUM CHL 20 Meq TABLET PO ONE
[2020-05-26] MEDS ORDERED: PIPERACILLIN-TAZOB 3.375GM 100 ML IV ONE (13:15)
[2020-05-26 14:50] LABS: Basophils # (auto) 0.1 10 ^3/uL (0-0.2); Basophils % (auto) 0.4 % (0.0-2.0); Eosinophils # (auto) 0 10 ^3/uL (0-0.8); Eosinophils % (auto) 0.1 % (0.0-7.0); Hematocrit 39.3 % (41.0-53.0); Hemoglobin 13.4 g/dL (13.5-17.5); Lymphocytes # (auto) 0.7 10 ^3/uL (0.4-5.4); Mean Corpuscular Hgb Conc. 34.1 g/dL (32.0-36.0); Mean Corpuscular Volume 90.9 fL (80.0-100.0); Monocytes # (auto) 1.3 10 ^3/uL (0-1.3); Monocytes % (auto) 5.9 % (0.0-12.0); Neutrophils # (auto) 19.5 10 ^3/uL (1.6-8.6); Neutrophils % (auto) 90.6 % (37.0-80.0); Platelet Count (auto) 249 10^3/uL (140-450); Red Blood Cells 4.32 10^6/uL (4.5-5.90); Red Cell Distribution Width 15.9 % (11.8-14.3); White Blood Cell 21.6 10^3/uL (4.4-10.8)
[2020-05-26 15:03] LABS: Albumin 1.3 g/dL (3.4-5.0); Anion Gap 8 (5-15); Blood Urea Nitrogen 52 mg/dL (7-18); Calcium 8.1 mg/dL (8.5-10.1); Carbon Dioxide 23 mmol/L (21-32); Chloride 104 mmol/L (98-107); Glucose 184 mg/dL (74-106); Potassium 3.6 mmol/L (3.5-5.1); Sodium 135 mmol/L (136-145)
[2020-05-26 15:04] LABS: INR 1.07 (0.9-1.15); Partial Thromboplastin Time 29.4 sec (23.0-31.2)
[2020-05-26 15:05] LABS: BUN/Creatinine Ratio 19.4; GFR African American 31 mL/min; GFR Non-African American 26 mL/min
[2020-05-26 15:22] LABS: Alanine Aminotransferase 19 U/L (16-61); Alkaline Phosphatase 148 U/L (45-117); Aspartate Aminotransferase 12 U/L (15-37); Bilirubin, Total 0.7 mg/dL (0.2-1.0); Total Protein 5.5 g/dL (6.4-8.2)
[2020-05-26] MEDS ORDERED: CLINDAMYCIN 600MG IV 50 ML IV ONE (15:30)
[2020-05-26] MEDS ORDERED: CARV6.2551 PO (18:25)
[2020-05-26] MEDS ORDERED: CLOP75TA70 PO (18:25)
[2020-05-26] MEDS ORDERED: METO5TAB56 PO (18:25)
[2020-05-26] MEDS ORDERED: FURO40TA4 PO (18:25)
[2020-05-26] MEDS ORDERED: HYDR200T36 PO (18:25)
[2020-05-26] MEDS ORDERED: CLIN-203 PO (18:25)
[2020-05-26] MEDS ORDERED: SERT-275 PO (18:26)
[2020-05-26] MEDS ORDERED: DIGO0.12 PO (18:26)
[2020-05-26] MEDS ORDERED: SACU1TAB PO (18:26)
[2020-05-26] MEDS ORDERED: POTA-220 (18:26)
[2020-05-26] MEDS ORDERED: LORazepam 0.5 MG TAB PO PRN (21:15)
[2020-05-26] MEDS ORDERED: MORPHINE SULF INJ 2 MG/ML SYRINGE 1ML IV PRN (21:15)
[2020-05-26] MEDS ORDERED: NITROGLYCERIN 0.4 MG SL TAB SL PRN (21:15)
[2020-05-26] MEDS ORDERED: DOCUSATE CALCIUM 240 MG CAP PO PRN (21:15)
[2020-05-26] MEDS ORDERED: TETANUS-DIPTH-ACEL PERTUSSIS 0.5ML SYR Tdap IM ONE (21:15)
[2020-05-26 21:35] LABS: Urine Bacteria FEW /hpf (None Seen); Urine Blood 1+ /uL (Negative); Urine Mucus FEW (None Seen); Urine Specific Gravity 1.022 (1.001-1.035); Urine WBC 5 /hpf (0 - 3)
[2020-05-26] MEDS: LINEZOLID 600MG/300ML 300 ML IV SCH (23:00)
[2020-05-26] MEDS: FUROSEMIDE 40 MG TAB PO SCH (23:03)
[2020-05-26] MEDS: INSULIN LANTUS (GLARGINE) 1 /0.01ml (100units/ml) SC SCH (23:37)
[2020-05-27] MEDS: MEROPENEM 1GM IVPB 100 ML IV SCH ×2 (02:00→12:33)
[2020-05-27] MEDS: FUROSEMIDE 40 MG TAB PO SCH (05:59)
[2020-05-27 07:14] LABS: INR 1.08 (0.9-1.15); Partial Thromboplastin Time 30.7 sec (23.0-31.2)
[2020-05-27 07:20] LABS: Albumin 1.4 g/dL (3.4-5.0); Calcium 8.1 mg/dL (8.5-10.1); Potassium 3.4 mmol/L (3.5-5.1)
[2020-05-27 07:22] LABS: BUN/Creatinine Ratio 18.7; Basophils # (auto) 0.1 10 ^3/uL (0-0.2); Basophils % (auto) 0.5 % (0.0-2.0); Eosinophils # (auto) 0.1 10 ^3/uL (0-0.8); Eosinophils % (auto) 0.4 % (0.0-7.0); Hematocrit 39.9 % (41.0-53.0); Hemoglobin 13.2 g/dL (13.5-17.5); Lymphocytes # (auto) 0.7 10 ^3/uL (0.4-5.4); Lymphocytes % (auto) 4.3 % (10.0-50.0); Mean Corpuscular Hemoglobin 30.3 pg (28.0-32.0); Mean Corpuscular Hgb Conc. 33.1 g/dL (32.0-36.0); Mean Corpuscular Volume 91.5 fL (80.0-100.0); Monocytes # (auto) 1.3 10 ^3/uL (0-1.3); Monocytes % (auto) 7.4 % (0.0-12.0); Neutrophils # (auto) 15.2 10 ^3/uL (1.6-8.6); Neutrophils % (auto) 87.4 % (37.0-80.0); Platelet Count (auto) 265 10^3/uL (140-450); Red Blood Cells 4.36 10^6/uL (4.5-5.90); Red Cell Distribution Width 15.7 % (11.8-14.3); White Blood Cell 17.3 10^3/uL (4.4-10.8)
[2020-05-27 07:25] LABS: Total Protein 5.6 g/dL (6.4-8.2)
[2020-05-27] MEDS ORDERED: POTASSIUM EFFERVESENT TAB 25 MEQ PO SCH (10:00)
[2020-05-27] MEDS ORDERED: FUROSEMIDE 20 MG TAB PO SCH (10:00)
[2020-05-27] MEDS: PANTOPRAZOLE 40 MG TAB PO SCH (10:00)
[2020-05-27] MEDS: DIGOXIN 0.125 MG TAB PO SCH (10:00)
[2020-05-27] MEDS: LINEZOLID 600MG/300ML 300 ML IV SCH ×2 (10:00→22:25)
[2020-05-27] MEDS: ENOXAPARIN SOD 40 MG/0.4 ML SYRINGE SC SCH (10:00)
[2020-05-27] MEDS: CARVEDILOL 3.125 MG TAB PO SCH ×2 (10:00→22:25)
[2020-05-27] MEDS: ONDANSETRON HCL 4 MG/2 ML VIAL IV PRN (13:53)
[2020-05-27] MEDS ORDERED: DOPamine 1600MCG/ML D5W 250 ML IV SCH ×2 (15:30→15:45)
[2020-05-27] MEDS ORDERED: SPIRONOLACTONE 25 MG TAB PO ONE (15:45)
[2020-05-27] MEDS: POTASSIUM CHL 20 Meq TABLET PO SCH ×2 (16:21→22:25)
[2020-05-27] MEDS: FUROSEMIDE INJECTION 100 MG in SODIUM CHL 0.9% 100 ML IV SCH (16:51)
[2020-05-27 17:29] VITALS: BP 127/79
[2020-05-27] MEDS: Glucerna Carbsteady SHAKE Vanilla 8oz PO SCH (18:22)
[2020-05-27] MEDS: DOBUTamine 1000MCG/ML 250 ML IV SCH (21:21)
[2020-05-27] MEDS: INSULIN LANTUS (GLARGINE) 1 /0.01ml (100units/ml) SC SCH (22:00)
[2020-05-27] MEDS ORDERED: DEXTROSE (50%) 50ML SYRG IV ONE (22:30)
[2020-05-27] MEDS: InsuLIN REG 1unit/0.01ml Soln (100units/ml) SC SCH (22:36)
[2020-05-27] MEDS: ACCU-CHEK COMFORT CURVE STRIP VI SCH (22:45)
[2020-05-28] MEDS: MEROPENEM 1GM IVPB 100 ML IV SCH ×2 (00:36→12:00)
[2020-05-28] MEDS: FUROSEMIDE INJECTION 100 MG in SODIUM CHL 0.9% 100 ML IV SCH ×3 (02:48→22:01)
[2020-05-28 05:00] VITALS: BP 137/72
[2020-05-28] MEDS: ACCU-CHEK COMFORT CURVE STRIP VI SCH ×4 (06:25→22:01)
[2020-05-28] MEDS: InsuLIN REG 1unit/0.01ml Soln (100units/ml) SC SCH ×4 (06:25→22:00)
[2020-05-28 07:20] LABS: Basophils # (auto) 0 10 ^3/uL (0-0.2); Basophils % (auto) 0.1 % (0.0-2.0); Eosinophils # (auto) 0.1 10 ^3/uL (0-0.8); Eosinophils % (auto) 0.3 % (0.0-7.0); Hematocrit 37.8 % (41.0-53.0); Hemoglobin 13.1 g/dL (13.5-17.5); Lymphocytes # (auto) 0.8 10 ^3/uL (0.4-5.4); Lymphocytes % (auto) 4.1 % (10.0-50.0); Mean Corpuscular Hemoglobin 31.2 pg (28.0-32.0); Mean Corpuscular Hgb Conc. 34.6 g/dL (32.0-36.0); Mean Corpuscular Volume 90.1 fL (80.0-100.0); Monocytes # (auto) 1.3 10 ^3/uL (0-1.3); Monocytes % (auto) 6.4 % (0.0-12.0); Neutrophils # (auto) 17.9 10 ^3/uL (1.6-8.6); Neutrophils % (auto) 89.1 % (37.0-80.0); Platelet Count (auto) 253 10^3/uL (140-450); Red Cell Distribution Width 15.5 % (11.8-14.3); White Blood Cell 20.1 10^3/uL (4.4-10.8)
[2020-05-28 07:47] LABS: Albumin 1.2 g/dL (3.4-5.0); Calcium 8.1 mg/dL (8.5-10.1); Potassium 3.6 mmol/L (3.5-5.1)
[2020-05-28 07:49] LABS: BUN/Creatinine Ratio 20.2
[2020-05-28] MEDS: Glucerna Carbsteady SHAKE Vanilla 8oz PO SCH ×3 (08:34→18:01)
[2020-05-28 09:00] VITALS: BP 149/79
[2020-05-28] MEDS: LINEZOLID 600MG/300ML 300 ML IV SCH ×2 (10:42→21:27)
[2020-05-28] MEDS: SPIRONOLACTONE 25 MG TAB PO SCH (10:43)
[2020-05-28] MEDS: CARVEDILOL 3.125 MG TAB PO SCH ×2 (10:45→21:26)
[2020-05-28] MEDS: POTASSIUM CHL 20 Meq TABLET PO SCH ×2 (10:46→21:25)
[2020-05-28] MEDS: DIGOXIN 0.125 MG TAB PO SCH ×2 (10:46→21:26)
[2020-05-28] MEDS: PANTOPRAZOLE 40 MG TAB PO SCH ×2 (10:46→21:26)
[2020-05-28] MEDS: ENOXAPARIN SOD 40 MG/0.4 ML SYRINGE SC SCH ×2 (10:47→21:26)
[2020-05-28 13:00] VITALS: BP 95/57
[2020-05-28] MEDS: DOBUTamine 1000MCG/ML 250 ML IV SCH (13:33)
[2020-05-28] MEDS: ACETAMINOPHEN 500 MG TAB PO PRN (16:37)
[2020-05-28 16:41] VITALS: BP 131/69
[2020-05-28 21:43] VITALS: BP 113/62
[2020-05-28] MEDS: INSULIN LANTUS (GLARGINE) 1 /0.01ml (100units/ml) SC SCH (22:00)
[2020-05-29] MEDS: MEROPENEM 1GM IVPB 100 ML IV SCH ×2 (00:13→12:33)
[2020-05-29] MEDS: DOBUTamine 1000MCG/ML 250 ML IV SCH ×2 (03:10→18:45)
[2020-05-29 05:00] VITALS: BP 148/77
[2020-05-29] MEDS: InsuLIN REG 1unit/0.01ml Soln (100units/ml) SC SCH ×4 (06:36→21:27)
[2020-05-29] MEDS: ACCU-CHEK COMFORT CURVE STRIP VI SCH ×4 (06:36→21:28)
[2020-05-29 07:24] LABS: Basophils # (auto) 0 10 ^3/uL (0-0.2); Eosinophils # (auto) 0 10 ^3/uL (0-0.8); Eosinophils % (auto) 0.2 % (0.0-7.0); Hematocrit 41.9 % (41.0-53.0); Hemoglobin 13.7 g/dL (13.5-17.5); Lymphocytes # (auto) 0.7 10 ^3/uL (0.4-5.4); Lymphocytes % (auto) 3.7 % (10.0-50.0); Mean Corpuscular Hemoglobin 30.6 pg (28.0-32.0); Mean Corpuscular Hgb Conc. 32.6 g/dL (32.0-36.0); Mean Corpuscular Volume 93.7 fL (80.0-100.0); Monocytes # (auto) 1.2 10 ^3/uL (0-1.3); Monocytes % (auto) 6.1 % (0.0-12.0); Neutrophils # (auto) 18.2 10 ^3/uL (1.6-8.6); Platelet Count (auto) 198 10^3/uL (140-450); Red Blood Cells 4.47 10^6/uL (4.5-5.90); Red Cell Distribution Width 16.3 % (11.8-14.3); White Blood Cell 20.2 10^3/uL (4.4-10.8)
[2020-05-29 07:43] LABS: Albumin 1.1 g/dL (3.4-5.0); Calcium 7.6 mg/dL (8.5-10.1)
[2020-05-29 07:45] LABS: BUN/Creatinine Ratio 20.3
[2020-05-29 07:48] LABS: Bilirubin, Total 0.9 mg/dL (0.2-1.0); Total Protein 4.2 g/dL (6.4-8.2)
[2020-05-29] MEDS: Glucerna Carbsteady SHAKE Vanilla 8oz PO SCH ×3 (08:25→18:15)
[2020-05-29 09:00] VITALS: BP 136/78
[2020-05-29] MEDS: LINEZOLID 600MG/300ML 300 ML IV SCH ×2 (10:00→21:25)
[2020-05-29] MEDS: SPIRONOLACTONE 25 MG TAB PO SCH (10:00)
[2020-05-29] MEDS: CARVEDILOL 3.125 MG TAB PO SCH ×2 (10:10→21:27)
[2020-05-29] MEDS: POTASSIUM CHL 20 Meq TABLET PO SCH (10:10)
[2020-05-29] MEDS: FUROSEMIDE INJECTION 100 MG in SODIUM CHL 0.9% 100 ML IV SCH ×3 (10:12→18:54)
[2020-05-29] MEDS: metOLazone 5 MG TAB PO SCH (12:34)
[2020-05-29] MEDS ORDERED: POTASSIUM CHL 20 Meq TABLET PO SCH (12:45)
[2020-05-29 13:00] VITALS: BP 154/77
[2020-05-29] MEDS: ACETAMINOPHEN 500 MG TAB PO PRN (13:31)
[2020-05-29 17:00] VITALS: BP 147/68
[2020-05-29] MEDS: POTASSIUM EFFERVESENT TAB 25 MEQ PO SCH ×2 (18:15→21:27)
[2020-05-29] MEDS: ONDANSETRON HCL 4 MG/2 ML VIAL IV PRN (19:37)
[2020-05-29] MEDS: INSULIN LANTUS (GLARGINE) 1 /0.01ml (100units/ml) SC SCH (21:28)
[2020-05-30] MEDS: MEROPENEM 1GM IVPB 100 ML IV SCH ×2 (00:31→12:41)
[2020-05-30] MEDS: FUROSEMIDE INJECTION 100 MG in SODIUM CHL 0.9% 100 ML IV SCH ×5 (00:31→21:55)
[2020-05-30 05:00] VITALS: BP 152/70
[2020-05-30] MEDS: POTASSIUM EFFERVESENT TAB 25 MEQ PO SCH ×4 (06:00→22:10)
[2020-05-30 06:04] LABS: Basophils # (auto) 0 10 ^3/uL (0-0.2); Basophils % (auto) 0.1 % (0.0-2.0); Eosinophils # (auto) 0.1 10 ^3/uL (0-0.8); Eosinophils % (auto) 0.6 % (0.0-7.0); Hematocrit 41.1 % (41.0-53.0); Hemoglobin 13.7 g/dL (13.5-17.5); Lymphocytes # (auto) 0.8 10 ^3/uL (0.4-5.4); Lymphocytes % (auto) 3.8 % (10.0-50.0); Mean Corpuscular Hemoglobin 30.2 pg (28.0-32.0); Mean Corpuscular Hgb Conc. 33.4 g/dL (32.0-36.0); Mean Corpuscular Volume 90.3 fL (80.0-100.0); Monocytes # (auto) 1.4 10 ^3/uL (0-1.3); Monocytes % (auto) 6.8 % (0.0-12.0); Neutrophils # (auto) 18.2 10 ^3/uL (1.6-8.6); Neutrophils % (auto) 88.7 % (37.0-80.0); Platelet Count (auto) 260 10^3/uL (140-450); Red Blood Cells 4.55 10^6/uL (4.5-5.90); Red Cell Distribution Width 15.5 % (11.8-14.3); White Blood Cell 20.5 10^3/uL (4.4-10.8)
[2020-05-30 06:35] LABS: INR 1.12 (0.9-1.15)
[2020-05-30 06:37] LABS: Potassium 3.4 mmol/L (3.5-5.1)
[2020-05-30] MEDS: ACCU-CHEK COMFORT CURVE STRIP VI SCH ×4 (06:39→22:10)
[2020-05-30] MEDS: InsuLIN REG 1unit/0.01ml Soln (100units/ml) SC SCH ×4 (06:39→22:00)
[2020-05-30 06:41] LABS: BUN/Creatinine Ratio 21.8; Calcium 7.5 mg/dL (8.5-10.1)
[2020-05-30] MEDS: Glucerna Carbsteady SHAKE Vanilla 8oz PO SCH ×3 (08:00→19:27)
[2020-05-30 09:00] VITALS: BP 151/74
[2020-05-30] MEDS: LINEZOLID 600MG/300ML 300 ML IV SCH ×2 (10:00→22:09)
[2020-05-30] MEDS: PANTOPRAZOLE 40 MG TAB PO SCH (10:00)
[2020-05-30] MEDS: SPIRONOLACTONE 25 MG TAB PO SCH (11:02)
[2020-05-30] MEDS: CARVEDILOL 3.125 MG TAB PO SCH ×3 (11:22→23:10)
[2020-05-30] MEDS: DIGOXIN 0.125 MG TAB PO SCH (11:23)
[2020-05-30] MEDS: ENOXAPARIN SOD 40 MG/0.4 ML SYRINGE SC SCH (11:23)
[2020-05-30] MEDS ORDERED: PROPOFOL 10 MG/ML 20 ML IV ONE (12:50)
[2020-05-30] MEDS ORDERED: MIDAZOLAM HCL 1MG/1ML-2 ML VIAL ONE (12:50)
[2020-05-30] MEDS ORDERED: ONDANSETRON HCL 4 MG/2 ML VIAL ONE (12:50)
[2020-05-30] MEDS ORDERED: fentaNYL CITRATE 100 MCG/2 ML VL ONE (12:50)
[2020-05-30 13:00] VITALS: BP 143/78
[2020-05-30] MEDS ORDERED: POTASSIUM CHLORIDE 20 MEQ, LIDOCAINE 1% (LOCAL ANESTH.) 2 ML in SODIUM CHL 0.9% 100 ML IV ONE (13:15)
[2020-05-30] MEDS ORDERED: LIDOCAINE 1% HCL (LOCAL ANESTH.) INJ 20ML MDV ONE (13:18)
[2020-05-30] MEDS ORDERED: BUPIVACAINE 0.5% MPF INJ 30ML SDV IJ ONE (13:20)
[2020-05-30 17:00] VITALS: BP 152/78
[2020-05-30] MEDS: DOBUTamine 1000MCG/ML 250 ML IV SCH (17:49)
[2020-05-30] MEDS: ACETAMINOPHEN 500 MG TAB PO PRN (19:29)
[2020-05-30 20:00] VITALS: BP 126/64
[2020-05-30 22:00] VITALS: BP 126/62
[2020-05-30] MEDS: INSULIN LANTUS (GLARGINE) 1 /0.01ml (100units/ml) SC SCH (22:11)
[2020-05-31] MEDS: MEROPENEM 1GM IVPB 100 ML IV SCH ×2 (00:07→12:00)
[2020-05-31] MEDS: DOBUTamine 1000MCG/ML 250 ML IV SCH ×2 (01:55→17:50)
[2020-05-31] MEDS: FUROSEMIDE INJECTION 100 MG in SODIUM CHL 0.9% 100 ML IV SCH ×3 (04:28→15:21)
[2020-05-31] MEDS: POTASSIUM EFFERVESENT TAB 25 MEQ PO SCH ×4 (06:14→22:14)
[2020-05-31 06:49] LABS: Potassium 3.1 mmol/L (3.5-5.1)
[2020-05-31] MEDS: InsuLIN REG 1unit/0.01ml Soln (100units/ml) SC SCH ×4 (06:49→22:00)
[2020-05-31] MEDS: ACCU-CHEK COMFORT CURVE STRIP VI SCH ×4 (06:49→22:15)
[2020-05-31 06:53] LABS: Albumin 1.1 g/dL (3.4-5.0); BUN/Creatinine Ratio 20.6; Calcium 7.7 mg/dL (8.5-10.1)
[2020-05-31 06:56] LABS: Bilirubin, Total 0.6 mg/dL (0.2-1.0); Total Protein 4.6 g/dL (6.4-8.2)
[2020-05-31 08:40] LABS: Basophils # (auto) 0.1 10 ^3/uL (0-0.2); Basophils % (auto) 0.4 % (0.0-2.0); Eosinophils # (auto) 0.2 10 ^3/uL (0-0.8); Hematocrit 41.5 % (41.0-53.0); Hemoglobin 13.8 g/dL (13.5-17.5); Lymphocytes # (auto) 0.8 10 ^3/uL (0.4-5.4); Lymphocytes % (auto) 4.8 % (10.0-50.0); Mean Corpuscular Hemoglobin 29.9 pg (28.0-32.0); Mean Corpuscular Hgb Conc. 33.3 g/dL (32.0-36.0); Monocytes # (auto) 1.2 10 ^3/uL (0-1.3); Monocytes % (auto) 6.8 % (0.0-12.0); Nucleated Red Blood Cells % 0.1 %; Platelet Count (auto) 272 10^3/uL (140-450); Red Blood Cells 4.62 10^6/uL (4.5-5.90); Red Cell Distribution Width 15.4 % (11.8-14.3); White Blood Cell 17.2 10^3/uL (4.4-10.8)
[2020-05-31 09:00] VITALS: BP 147/72
[2020-05-31] MEDS: SPIRONOLACTONE 25 MG TAB PO SCH (10:00)
[2020-05-31] MEDS: ENOXAPARIN SOD 40 MG/0.4 ML SYRINGE SC SCH (10:00)
[2020-05-31] MEDS: Glucerna Carbsteady SHAKE Vanilla 8oz PO SCH ×3 (10:44→17:50)
[2020-05-31] MEDS: LINEZOLID 600MG/300ML 300 ML IV SCH ×2 (11:28→22:13)
[2020-05-31] MEDS: DIGOXIN 0.125 MG TAB PO SCH (11:28)
[2020-05-31] MEDS: PANTOPRAZOLE 40 MG TAB PO SCH (11:29)
[2020-05-31 17:00] VITALS: BP 166/74
[2020-05-31 20:00] VITALS: BP 148/76
[2020-05-31] MEDS: INSULIN LANTUS (GLARGINE) 1 /0.01ml (100units/ml) SC SCH (22:00)
[2020-05-31] MEDS: CARVEDILOL 3.125 MG TAB PO SCH (22:14)
[2020-05-31] MEDS: hydrALAZINE HCL 20 MG/ML VL IV PRN (23:24)
[2020-06-01] MEDS: MEROPENEM 1GM IVPB 100 ML IV SCH ×2 (00:05→12:22)
[2020-06-01] MEDS: ACETAMINOPHEN 500 MG TAB PO PRN (01:05)
[2020-06-01] MEDS: FUROSEMIDE INJECTION 100 MG in SODIUM CHL 0.9% 100 ML IV SCH ×5 (01:20→21:57)
[2020-06-01] MEDS: DOBUTamine 1000MCG/ML 250 ML IV SCH ×2 (04:51→12:21)
[2020-06-01 05:00] VITALS: BP 163/80
[2020-06-01 05:25] VITALS: BP 150/69
[2020-06-01 06:01] LABS: Basophils # (auto) 0 10 ^3/uL (0-0.2); Basophils % (auto) 0.3 % (0.0-2.0); Eosinophils # (auto) 0.1 10 ^3/uL (0-0.8); Eosinophils % (auto) 0.8 % (0.0-7.0); Hematocrit 40.5 % (41.0-53.0); Lymphocytes # (auto) 0.8 10 ^3/uL (0.4-5.4); Lymphocytes % (auto) 5.3 % (10.0-50.0); Mean Corpuscular Hemoglobin 31.1 pg (28.0-32.0); Mean Corpuscular Hgb Conc. 34.7 g/dL (32.0-36.0); Mean Corpuscular Volume 89.8 fL (80.0-100.0); Monocytes % (auto) 6.5 % (0.0-12.0); Neutrophils # (auto) 13.8 10 ^3/uL (1.6-8.6); Neutrophils % (auto) 87.1 % (37.0-80.0); Platelet Count (auto) 230 10^3/uL (140-450); Red Blood Cells 4.51 10^6/uL (4.5-5.90); Red Cell Distribution Width 15.5 % (11.8-14.3); White Blood Cell 15.9 10^3/uL (4.4-10.8)
[2020-06-01 06:15] LABS: BUN/Creatinine Ratio 20.3; Calcium 7.8 mg/dL (8.5-10.1)
[2020-06-01] MEDS: POTASSIUM EFFERVESENT TAB 25 MEQ PO SCH ×2 (06:18→12:00)
[2020-06-01] MEDS: hydrALAZINE HCL 20 MG/ML VL IV PRN (06:19)
[2020-06-01] MEDS: ACCU-CHEK COMFORT CURVE STRIP VI SCH ×4 (06:45→21:58)
[2020-06-01] MEDS: InsuLIN REG 1unit/0.01ml Soln (100units/ml) SC SCH ×4 (06:45→21:59)
[2020-06-01] MEDS ORDERED: LIDOCAINE 1% HCL (LOCAL ANESTH.) INJ 20ML MDV ONE ×3 (07:40→09:13)
[2020-06-01] MEDS ORDERED: TETRACAINE 1% INJ 2 ML VIAL IJ ONE (07:40)
[2020-06-01] MEDS ORDERED: DAKINS HALF STR 0.25% (NaHypochlorite) 473 ML TOPICAL SOL TOP ONE (07:45)
[2020-06-01] MEDS ORDERED: BUPIVACAINE 0.25% INJ 50ML VIAL ONE (07:52)
[2020-06-01 08:00] VITALS: BP 147/71
[2020-06-01] MEDS ORDERED: BUPIVACAINE 0.5% P/F INJ 10 ML VIAL ONE (08:18)
[2020-06-01] MEDS ORDERED: CLINDAMYCIN 600MG IV 50 ML IV ONE (08:50)
[2020-06-01] MEDS ORDERED: ONDANSETRON HCL 4 MG/2 ML VIAL IV PRN (09:00)
[2020-06-01] MEDS ORDERED: HYDROmorphone HCL 2 MG/ML VL IV PRN (09:00)
[2020-06-01] MEDS ORDERED: ACCU-CHEK COMFORT CURVE STRIP VI ONE (09:00)
[2020-06-01] MEDS ORDERED: MORPHINE SULFATE 4 MG/ML SYR/VIAL IV PRN (09:00)
[2020-06-01] MEDS ORDERED: LIDOCAINE HCL (LOCAL ANESTH.) 0.5 % 50ML MDV IJ ONE (09:25)
[2020-06-01] MEDS: ENOXAPARIN SOD 40 MG/0.4 ML SYRINGE SC SCH (10:00)
[2020-06-01] MEDS: SPIRONOLACTONE 25 MG TAB PO SCH (11:12)
[2020-06-01] MEDS: Glucerna Carbsteady SHAKE Vanilla 8oz PO SCH ×3 (11:12→18:00)
[2020-06-01] MEDS: LINEZOLID 600MG/300ML 300 ML IV SCH ×2 (11:12→21:57)
[2020-06-01] MEDS: DIGOXIN 0.125 MG TAB PO SCH (11:13)
[2020-06-01] MEDS: CARVEDILOL 3.125 MG TAB PO SCH ×2 (11:13→21:57)
[2020-06-01] MEDS: PANTOPRAZOLE 40 MG TAB PO SCH (11:13)
[2020-06-01] MEDS ORDERED: POTASSIUM CHL 20MEQ/100ML 100 ML IV SCH (11:30)
[2020-06-01 12:00] VITALS: BP 146/69
[2020-06-01] MEDS: MORPHINE SULF INJ 2 MG/ML SYRINGE 1ML IV PRN ×2 (12:07→18:55)
[2020-06-01] MEDS ORDERED: POTASSIUM CHL 20 Meq TABLET PO ONE (12:30)
[2020-06-01 16:00] VITALS: BP 138/69
[2020-06-01] MEDS: metOLazone 5 MG TAB PO SCH (16:02)
[2020-06-01] MEDS: INSULIN LANTUS (GLARGINE) 1 /0.01ml (100units/ml) SC SCH (21:58)
[2020-06-01 22:00] VITALS: BP 169/77
[2020-06-01] MEDS ORDERED: ENOXAPARIN SOD 30 MG/0.3 ML SYRINGE SC SCH (22:00)
[2020-06-02] MEDS: MEROPENEM 1GM IVPB 100 ML IV SCH ×2 (00:13→13:37)
[2020-06-02] MEDS: DOBUTamine 1000MCG/ML 250 ML IV SCH ×2 (00:16→16:34)
[2020-06-02] MEDS: FUROSEMIDE INJECTION 100 MG in SODIUM CHL 0.9% 100 ML IV SCH ×5 (02:38→21:55)
[2020-06-02] MEDS: MORPHINE SULF INJ 2 MG/ML SYRINGE 1ML IV PRN ×2 (04:21→15:50)
[2020-06-02 05:00] VITALS: BP 149/73
[2020-06-02] MEDS: ACCU-CHEK COMFORT CURVE STRIP VI SCH ×4 (06:05→21:31)
[2020-06-02] MEDS: InsuLIN REG 1unit/0.01ml Soln (100units/ml) SC SCH ×4 (06:05→22:00)
[2020-06-02 07:31] LABS: Basophils # (auto) 0 10 ^3/uL (0-0.2); Basophils % (auto) 0.2 % (0.0-2.0); Eosinophils # (auto) 0.3 10 ^3/uL (0-0.8); Eosinophils % (auto) 1.7 % (0.0-7.0); Hematocrit 39.4 % (41.0-53.0); Lymphocytes # (auto) 1.1 10 ^3/uL (0.4-5.4); Lymphocytes % (auto) 6.2 % (10.0-50.0); Mean Corpuscular Hemoglobin 29.6 pg (28.0-32.0); Mean Corpuscular Hgb Conc. 32.9 g/dL (32.0-36.0); Mean Corpuscular Volume 90.1 fL (80.0-100.0); Monocytes # (auto) 1.2 10 ^3/uL (0-1.3); Monocytes % (auto) 7.1 % (0.0-12.0); Neutrophils # (auto) 14.4 10 ^3/uL (1.6-8.6); Neutrophils % (auto) 84.8 % (37.0-80.0); Platelet Count (auto) 217 10^3/uL (140-450); Red Blood Cells 4.38 10^6/uL (4.5-5.90); Red Cell Distribution Width 15.6 % (11.8-14.3)
[2020-06-02 07:49] LABS: BUN/Creatinine Ratio 21.8; Calcium 7.2 mg/dL (8.5-10.1)
[2020-06-02 07:52] LABS: Potassium 2.8 mmol/L (3.5-5.1)
[2020-06-02 09:00] VITALS: BP 162/82
[2020-06-02] MEDS ORDERED: ENOXAPARIN SOD 30 MG/0.3 ML SYRINGE SC SCH (10:00)
[2020-06-02] MEDS ORDERED: POTASSIUM CHL 20 Meq TABLET PO SCH (10:00)
[2020-06-02] MEDS: SPIRONOLACTONE 25 MG TAB PO SCH (10:11)
[2020-06-02] MEDS: Glucerna Carbsteady SHAKE Vanilla 8oz PO SCH ×3 (10:11→18:38)
[2020-06-02] MEDS: LINEZOLID 600MG/300ML 300 ML IV SCH ×2 (10:11→22:14)
[2020-06-02] MEDS: CARVEDILOL 3.125 MG TAB PO SCH ×2 (10:12→22:14)
[2020-06-02] MEDS: DIGOXIN 0.125 MG TAB PO SCH (10:13)
[2020-06-02] MEDS: PANTOPRAZOLE 40 MG TAB PO SCH (10:13)
[2020-06-02] MEDS: ENOXAPARIN SOD 40 MG/0.4 ML SYRINGE SC SCH (10:13)
[2020-06-02] MEDS ORDERED: POTASSIUM CHL 20 Meq TABLET PO ONE (10:45)
[2020-06-02] MEDS ORDERED: POTASSIUM CHLORIDE 40 MEQ, LIDOCAINE 1% (LOCAL ANESTH.) 4 ML in SODIUM CHL 0.9% 250 ML IV ONE ×2 (12:15→16:00)
[2020-06-02 13:00] VITALS: BP 169/77
[2020-06-02 17:00] VITALS: BP 160/74
[2020-06-02 21:33] LABS: BUN/Creatinine Ratio 20.7; Calcium 6.8 mg/dL (8.5-10.1); Potassium 3.3 mmol/L (3.5-5.1)
[2020-06-02 22:00] VITALS: BP 154/64
[2020-06-02] MEDS: INSULIN LANTUS (GLARGINE) 1 /0.01ml (100units/ml) SC SCH (22:14)
[2020-06-02] MEDS: POTASSIUM CHL 20 Meq TABLET PO SCH (22:14)
[2020-06-03] MEDS: MEROPENEM 1GM IVPB 100 ML IV SCH ×2 (00:24→12:44)
[2020-06-03] MEDS: MORPHINE SULF INJ 2 MG/ML SYRINGE 1ML IV PRN ×3 (03:34→15:39)
[2020-06-03 05:00] VITALS: BP 135/62
[2020-06-03] MEDS: FUROSEMIDE INJECTION 100 MG in SODIUM CHL 0.9% 100 ML IV SCH ×5 (05:20→20:36)
[2020-06-03] MEDS: ACCU-CHEK COMFORT CURVE STRIP VI SCH ×4 (06:14→22:09)
[2020-06-03] MEDS: InsuLIN REG 1unit/0.01ml Soln (100units/ml) SC SCH ×4 (06:15→22:00)
[2020-06-03 06:33] LABS: Basophils # (auto) 0 10 ^3/uL (0-0.2); Basophils % (auto) 0.2 % (0.0-2.0); Eosinophils # (auto) 0.3 10 ^3/uL (0-0.8); Hematocrit 35.8 % (41.0-53.0); Hemoglobin 11.7 g/dL (13.5-17.5); Lymphocytes # (auto) 0.9 10 ^3/uL (0.4-5.4); Lymphocytes % (auto) 5.9 % (10.0-50.0); Mean Corpuscular Hemoglobin 29.7 pg (28.0-32.0); Mean Corpuscular Hgb Conc. 32.6 g/dL (32.0-36.0); Mean Corpuscular Volume 90.9 fL (80.0-100.0); Monocytes # (auto) 0.9 10 ^3/uL (0-1.3); Monocytes % (auto) 5.9 % (0.0-12.0); Neutrophils # (auto) 13.3 10 ^3/uL (1.6-8.6); Nucleated Red Blood Cells % 0.1 %; Platelet Count (auto) 171 10^3/uL (140-450); Red Blood Cells 3.94 10^6/uL (4.5-5.90); Red Cell Distribution Width 15.2 % (11.8-14.3); White Blood Cell 15.4 10^3/uL (4.4-10.8)
[2020-06-03 06:53] LABS: Potassium 3.4 mmol/L (3.5-5.1)
[2020-06-03 06:59] LABS: Calcium 6.6 mg/dL (8.5-10.1)
[2020-06-03 08:00] VITALS: BP 139/67
[2020-06-03 09:00] VITALS: BP 139/67
[2020-06-03] MEDS: DOBUTamine 1000MCG/ML 250 ML IV SCH (09:30)
[2020-06-03] MEDS: Glucerna Carbsteady SHAKE Vanilla 8oz PO SCH ×3 (09:30→17:33)
[2020-06-03] MEDS: CARVEDILOL 3.125 MG TAB PO SCH ×2 (09:31→22:09)
[2020-06-03] MEDS: LINEZOLID 600MG/300ML 300 ML IV SCH ×2 (09:31→22:08)
[2020-06-03] MEDS: SPIRONOLACTONE 25 MG TAB PO SCH (09:31)
[2020-06-03] MEDS: DIGOXIN 0.125 MG TAB PO SCH (09:32)
[2020-06-03] MEDS: POTASSIUM CHL 20 Meq TABLET PO SCH ×2 (09:32→22:09)
[2020-06-03] MEDS: ENOXAPARIN SOD 40 MG/0.4 ML SYRINGE SC SCH (09:33)
[2020-06-03] MEDS: PANTOPRAZOLE 40 MG TAB PO SCH (09:33)
[2020-06-03 13:00] VITALS: BP 145/70
[2020-06-03 17:00] VITALS: BP 101/56
[2020-06-03 22:00] VITALS: BP 137/74
[2020-06-03] MEDS: INSULIN LANTUS (GLARGINE) 1 /0.01ml (100units/ml) SC SCH (22:00)
[2020-06-04] MEDS: MEROPENEM 1GM IVPB 100 ML IV SCH ×2 (00:25→12:02)
[2020-06-04] MEDS: FUROSEMIDE INJECTION 100 MG in SODIUM CHL 0.9% 100 ML IV SCH ×5 (02:14→23:14)
[2020-06-04] MEDS: DOBUTamine 1000MCG/ML 250 ML IV SCH ×2 (02:14→07:25)
[2020-06-04 05:00] VITALS: BP 156/92
[2020-06-04 05:50] LABS: Basophils # (auto) 0 10 ^3/uL (0-0.2); Basophils % (auto) 0.1 % (0.0-2.0); Eosinophils # (auto) 0.1 10 ^3/uL (0-0.8); Eosinophils % (auto) 0.8 % (0.0-7.0); Hematocrit 37.4 % (41.0-53.0); Hemoglobin 12.4 g/dL (13.5-17.5); Lymphocytes % (auto) 8.1 % (10.0-50.0); Mean Corpuscular Hemoglobin 30.3 pg (28.0-32.0); Mean Corpuscular Hgb Conc. 33.2 g/dL (32.0-36.0); Mean Corpuscular Volume 91.4 fL (80.0-100.0); Monocytes # (auto) 0.6 10 ^3/uL (0-1.3); Monocytes % (auto) 4.6 % (0.0-12.0); Neutrophils % (auto) 86.4 % (37.0-80.0); Platelet Count (auto) 151 10^3/uL (140-450); Red Blood Cells 4.09 10^6/uL (4.5-5.90); Red Cell Distribution Width 15.4 % (11.8-14.3); White Blood Cell 12.7 10^3/uL (4.4-10.8)
[2020-06-04] MEDS: ONDANSETRON HCL 4 MG/2 ML VIAL IV PRN (06:02)
[2020-06-04] MEDS: InsuLIN REG 1unit/0.01ml Soln (100units/ml) SC SCH ×4 (06:03→21:44)
[2020-06-04] MEDS: ACCU-CHEK COMFORT CURVE STRIP VI SCH ×4 (06:03→21:44)
[2020-06-04 06:25] LABS: Potassium 4.4 mmol/L (3.5-5.1)
[2020-06-04 06:31] LABS: Calcium 7.4 mg/dL (8.5-10.1)
[2020-06-04] MEDS: Glucerna Carbsteady SHAKE Vanilla 8oz PO SCH ×3 (08:00→18:00)
[2020-06-04 08:42] VITALS: BP 159/83
[2020-06-04] MEDS: SPIRONOLACTONE 25 MG TAB PO SCH (09:47)
[2020-06-04] MEDS: CARVEDILOL 3.125 MG TAB PO SCH (09:47)
[2020-06-04] MEDS: LINEZOLID 600MG/300ML 300 ML IV SCH ×2 (09:47→22:01)
[2020-06-04] MEDS: PANTOPRAZOLE 40 MG TAB PO SCH (09:48)
[2020-06-04] MEDS: DIGOXIN 0.125 MG TAB PO SCH (09:48)
[2020-06-04] MEDS: POTASSIUM CHL 20 Meq TABLET PO SCH ×2 (09:48→22:02)
[2020-06-04] MEDS: ENOXAPARIN SOD 40 MG/0.4 ML SYRINGE SC SCH (09:49)
[2020-06-04] MEDS: metOLazone 5 MG TAB PO SCH (12:00)
[2020-06-04] MEDS: MORPHINE SULF INJ 2 MG/ML SYRINGE 1ML IV PRN ×2 (12:13→18:16)
[2020-06-04 13:00] VITALS: BP 159/85
[2020-06-04] MEDS: hydrALAZINE HCL 20 MG/ML VL IV PRN (13:52)
[2020-06-04 17:00] VITALS: BP 167/85
[2020-06-04] MEDS: LABETALOL HCL 5 MG/ML 4ML SYRINGE IV ONE (19:15)
[2020-06-04 19:20] VITALS: BP 149/68
[2020-06-04] MEDS: INSULIN LANTUS (GLARGINE) 1 /0.01ml (100units/ml) SC SCH (21:44)
[2020-06-04 22:00] VITALS: BP 145/75
[2020-06-04] MEDS: CARVEDILOL 12.5 MG TAB PO SCH (22:02)
[2020-06-05] MEDS: DOBUTamine 1000MCG/ML 250 ML IV SCH ×3 (00:20→18:57)
[2020-06-05] MEDS: MEROPENEM 1GM IVPB 100 ML IV SCH ×2 (00:20→13:01)
[2020-06-05] MEDS: FUROSEMIDE INJECTION 100 MG in SODIUM CHL 0.9% 100 ML IV SCH ×4 (03:57→18:57)
[2020-06-05 05:00] VITALS: BP 138/73
[2020-06-05] MEDS: InsuLIN REG 1unit/0.01ml Soln (100units/ml) SC SCH ×4 (06:03→22:00)
[2020-06-05] MEDS: ACCU-CHEK COMFORT CURVE STRIP VI SCH ×4 (06:03→22:16)
[2020-06-05 07:16] LABS: Basophils # (auto) 0 10 ^3/uL (0-0.2); Basophils % (auto) 0.2 % (0.0-2.0); Eosinophils # (auto) 0.2 10 ^3/uL (0-0.8); Eosinophils % (auto) 2.1 % (0.0-7.0); Hematocrit 39.8 % (41.0-53.0); Hemoglobin 13.1 g/dL (13.5-17.5); Lymphocytes % (auto) 9.1 % (10.0-50.0); Mean Corpuscular Hemoglobin 30.1 pg (28.0-32.0); Mean Corpuscular Volume 91.2 fL (80.0-100.0); Monocytes # (auto) 0.7 10 ^3/uL (0-1.3); Monocytes % (auto) 6.6 % (0.0-12.0); Neutrophils # (auto) 8.6 10 ^3/uL (1.6-8.6); Platelet Count (auto) 157 10^3/uL (140-450); Red Blood Cells 4.36 10^6/uL (4.5-5.90); Red Cell Distribution Width 15.5 % (11.8-14.3); White Blood Cell 10.5 10^3/uL (4.4-10.8)
[2020-06-05 07:37] LABS: Albumin 1.3 g/dL (3.4-5.0); Calcium 7.3 mg/dL (8.5-10.1); Potassium 3.8 mmol/L (3.5-5.1)
[2020-06-05 07:39] LABS: BUN/Creatinine Ratio 19.9
[2020-06-05 07:42] LABS: Bilirubin, Total 0.7 mg/dL (0.2-1.0); Total Protein 5.2 g/dL (6.4-8.2)
[2020-06-05 08:30] VITALS: BP 148/82
[2020-06-05] MEDS: Glucerna Carbsteady SHAKE Vanilla 8oz PO SCH ×3 (09:40→18:23)
[2020-06-05] MEDS: SPIRONOLACTONE 25 MG TAB PO SCH (09:40)
[2020-06-05] MEDS: LINEZOLID 600MG/300ML 300 ML IV SCH ×2 (09:40→22:14)
[2020-06-05] MEDS: PANTOPRAZOLE 40 MG TAB PO SCH (09:41)
[2020-06-05] MEDS: CARVEDILOL 12.5 MG TAB PO SCH ×2 (09:41→22:15)
[2020-06-05] MEDS: DIGOXIN 0.125 MG TAB PO SCH (09:41)
[2020-06-05] MEDS: POTASSIUM CHL 20 Meq TABLET PO SCH ×2 (09:41→22:15)
[2020-06-05] MEDS: ENOXAPARIN SOD 40 MG/0.4 ML SYRINGE SC SCH (09:42)
[2020-06-05 12:30] VITALS: BP 163/84
[2020-06-05 17:00] VITALS: BP 128/68
[2020-06-05] MEDS: MORPHINE SULF INJ 2 MG/ML SYRINGE 1ML IV PRN (17:19)
[2020-06-05 21:56] VITALS: BP 131/68
[2020-06-05] MEDS: INSULIN LANTUS (GLARGINE) 1 /0.01ml (100units/ml) SC SCH (22:00)
[2020-06-06] MEDS: MEROPENEM 1GM IVPB 100 ML IV SCH ×2 (00:22→12:24)
[2020-06-06] MEDS: FUROSEMIDE INJECTION 100 MG in SODIUM CHL 0.9% 100 ML IV SCH ×3 (00:28→11:22)
[2020-06-06] MEDS: MORPHINE SULF INJ 2 MG/ML SYRINGE 1ML IV PRN ×2 (00:36→10:16)
[2020-06-06 05:00] VITALS: BP 106/65
[2020-06-06 06:12] LABS: Basophils # (auto) 0.1 10 ^3/uL (0-0.2); Basophils % (auto) 0.9 % (0.0-2.0); Eosinophils # (auto) 0.2 10 ^3/uL (0-0.8); Eosinophils % (auto) 2.3 % (0.0-7.0); Hematocrit 37.1 % (41.0-53.0); Hemoglobin 12.5 g/dL (13.5-17.5); Lymphocytes # (auto) 0.9 10 ^3/uL (0.4-5.4); Mean Corpuscular Hemoglobin 30.5 pg (28.0-32.0); Mean Corpuscular Hgb Conc. 33.8 g/dL (32.0-36.0); Mean Corpuscular Volume 90.2 fL (80.0-100.0); Monocytes # (auto) 0.8 10 ^3/uL (0-1.3); Monocytes % (auto) 7.6 % (0.0-12.0); Neutrophils # (auto) 8.5 10 ^3/uL (1.6-8.6); Neutrophils % (auto) 80.2 % (37.0-80.0); Nucleated Red Blood Cells % 0.1 %; Platelet Count (auto) 140 10^3/uL (140-450); Red Blood Cells 4.11 10^6/uL (4.5-5.90); Red Cell Distribution Width 14.8 % (11.8-14.3); White Blood Cell 10.5 10^3/uL (4.4-10.8)
[2020-06-06] MEDS: InsuLIN REG 1unit/0.01ml Soln (100units/ml) SC SCH ×4 (06:25→22:00)
[2020-06-06] MEDS: ACCU-CHEK COMFORT CURVE STRIP VI SCH ×4 (06:25→22:26)
[2020-06-06 06:31] LABS: Potassium 3.8 mmol/L (3.5-5.1)
[2020-06-06 06:37] LABS: BUN/Creatinine Ratio 20.9; Calcium 7.5 mg/dL (8.5-10.1)
[2020-06-06] MEDS: Glucerna Carbsteady SHAKE Vanilla 8oz PO SCH ×3 (08:00→18:00)
[2020-06-06 09:00] VITALS: BP 153/79
[2020-06-06] MEDS: LINEZOLID 600MG/300ML 300 ML IV SCH ×2 (10:07→22:35)
[2020-06-06] MEDS: DIGOXIN 0.125 MG TAB PO SCH (10:08)
[2020-06-06] MEDS: CARVEDILOL 12.5 MG TAB PO SCH ×2 (10:08→22:35)
[2020-06-06] MEDS: PANTOPRAZOLE 40 MG TAB PO SCH (10:09)
[2020-06-06] MEDS: POTASSIUM CHL 20 Meq TABLET PO SCH ×2 (10:09→22:00)
[2020-06-06] MEDS: SPIRONOLACTONE 25 MG TAB PO SCH (10:10)
[2020-06-06] MEDS: ENOXAPARIN SOD 40 MG/0.4 ML SYRINGE SC SCH (10:10)
[2020-06-06] MEDS: ONDANSETRON HCL 4 MG/2 ML VIAL IV PRN (11:21)
[2020-06-06 13:00] VITALS: BP 144/76
[2020-06-06] MEDS: DOBUTamine 1000MCG/ML 250 ML IV SCH (13:45)
[2020-06-06 16:53] VITALS: BP 117/61
[2020-06-06 18:07] LABS: INR 1.15 (0.9-1.15); Partial Thromboplastin Time 35.3 sec (23.0-31.2)
[2020-06-06] MEDS: FUROSEMIDE 40 MG TAB PO SCH (18:39)
[2020-06-06 22:00] VITALS: BP 117/64
[2020-06-06] MEDS: INSULIN LANTUS (GLARGINE) 1 /0.01ml (100units/ml) SC SCH (22:00)
[2020-06-07] MEDS: MEROPENEM 1GM IVPB 100 ML IV SCH ×2 (00:43→13:02)
[2020-06-07] MEDS: ACETAMINOPHEN 500 MG TAB PO PRN (04:34)
[2020-06-07 05:00] VITALS: BP 149/68
[2020-06-07] MEDS: FUROSEMIDE 40 MG TAB PO SCH ×2 (06:18→18:19)
[2020-06-07] MEDS: InsuLIN REG 1unit/0.01ml Soln (100units/ml) SC SCH ×4 (06:18→23:11)
[2020-06-07] MEDS: ACCU-CHEK COMFORT CURVE STRIP VI SCH ×4 (06:19→22:46)
[2020-06-07 06:41] LABS: Albumin 1.4 g/dL (3.4-5.0); BUN/Creatinine Ratio 20.6; Bilirubin, Total 0.9 mg/dL (0.2-1.0); Calcium 7.6 mg/dL (8.5-10.1); Total Protein 5.2 g/dL (6.4-8.2)
[2020-06-07 06:48] LABS: Basophils # (auto) 0 10 ^3/uL (0-0.2); Basophils % (auto) 0.4 % (0.0-2.0); Eosinophils # (auto) 0.1 10 ^3/uL (0-0.8); Eosinophils % (auto) 0.6 % (0.0-7.0); Hematocrit 35.8 % (41.0-53.0); Hemoglobin 11.9 g/dL (13.5-17.5); Lymphocytes % (auto) 8.5 % (10.0-50.0); Mean Corpuscular Hemoglobin 30.2 pg (28.0-32.0); Mean Corpuscular Hgb Conc. 33.4 g/dL (32.0-36.0); Mean Corpuscular Volume 90.6 fL (80.0-100.0); Monocytes # (auto) 0.6 10 ^3/uL (0-1.3); Monocytes % (auto) 5.6 % (0.0-12.0); Neutrophils # (auto) 9.6 10 ^3/uL (1.6-8.6); Neutrophils % (auto) 84.9 % (37.0-80.0); Nucleated Red Blood Cells % 0.1 %; Platelet Count (auto) 116 10^3/uL (140-450); Red Blood Cells 3.95 10^6/uL (4.5-5.90); Red Cell Distribution Width 15.1 % (11.8-14.3); White Blood Cell 11.3 10^3/uL (4.4-10.8)
[2020-06-07] MEDS: Glucerna Carbsteady SHAKE Vanilla 8oz PO SCH ×3 (08:00→18:19)
[2020-06-07 09:00] VITALS: BP 141/74
[2020-06-07] MEDS: PANTOPRAZOLE 40 MG TAB PO SCH (09:13)
[2020-06-07] MEDS: SPIRONOLACTONE 25 MG TAB PO SCH (09:14)
[2020-06-07] MEDS: DIGOXIN 0.125 MG TAB PO SCH (09:14)
[2020-06-07] MEDS: CARVEDILOL 12.5 MG TAB PO SCH ×2 (09:14→22:45)
[2020-06-07] MEDS: POTASSIUM CHL 20 Meq TABLET PO SCH ×2 (09:15→22:46)
[2020-06-07] MEDS: ENOXAPARIN SOD 40 MG/0.4 ML SYRINGE SC SCH (09:16)
[2020-06-07] MEDS: LINEZOLID 600MG/300ML 300 ML IV SCH ×2 (09:17→22:45)
[2020-06-07] MEDS: ONDANSETRON HCL 4 MG/2 ML VIAL IV PRN ×2 (09:55→23:00)
[2020-06-07] MEDS: MORPHINE SULF INJ 2 MG/ML SYRINGE 1ML IV PRN (09:56)
[2020-06-07] MEDS: metOLazone 5 MG TAB PO SCH (12:56)
[2020-06-07 13:00] VITALS: BP 113/69
[2020-06-07 16:55] VITALS: BP 131/74
[2020-06-07] MEDS ORDERED: HYDROcodone-ACET 5/325MG TAB PO PRN (18:00)
[2020-06-07 22:00] VITALS: BP 137/73
[2020-06-07] MEDS: INSULIN LANTUS (GLARGINE) 1 /0.01ml (100units/ml) SC SCH (23:11)
[2020-06-08] MEDS: MEROPENEM 1GM IVPB 100 ML IV SCH (01:00)
[2020-06-08 05:00] VITALS: BP 140/64
[2020-06-08] MEDS: ACCU-CHEK COMFORT CURVE STRIP VI SCH ×4 (06:39→22:06)
[2020-06-08] MEDS: FUROSEMIDE 40 MG TAB PO SCH (06:40)
[2020-06-08] MEDS: InsuLIN REG 1unit/0.01ml Soln (100units/ml) SC SCH ×4 (06:48→22:00)
[2020-06-08 07:21] LABS: Basophils # (auto) 0.1 10 ^3/uL (0-0.2); Basophils % (auto) 0.5 % (0.0-2.0); Eosinophils # (auto) 0.2 10 ^3/uL (0-0.8); Eosinophils % (auto) 1.5 % (0.0-7.0); Hematocrit 36.2 % (41.0-53.0); Hemoglobin 11.8 g/dL (13.5-17.5); Lymphocytes # (auto) 1.3 10 ^3/uL (0.4-5.4); Lymphocytes % (auto) 11.3 % (10.0-50.0); Mean Corpuscular Hemoglobin 29.5 pg (28.0-32.0); Mean Corpuscular Hgb Conc. 32.6 g/dL (32.0-36.0); Mean Corpuscular Volume 90.4 fL (80.0-100.0); Monocytes # (auto) 0.7 10 ^3/uL (0-1.3); Monocytes % (auto) 5.8 % (0.0-12.0); Neutrophils # (auto) 9.2 10 ^3/uL (1.6-8.6); Neutrophils % (auto) 80.9 % (37.0-80.0); Nucleated Red Blood Cells % 0.3 %; Platelet Count (auto) 119 10^3/uL (140-450); Red Cell Distribution Width 15.2 % (11.8-14.3); White Blood Cell 11.3 10^3/uL (4.4-10.8)
[2020-06-08 07:30] LABS: Albumin 1.4 g/dL (3.4-5.0); Calcium 7.3 mg/dL (8.5-10.1); Potassium 4.4 mmol/L (3.5-5.1)
[2020-06-08 07:35] LABS: BUN/Creatinine Ratio 21.9; Bilirubin, Total 0.9 mg/dL (0.2-1.0)
[2020-06-08] MEDS: Glucerna Carbsteady SHAKE Vanilla 8oz PO SCH ×3 (08:00→18:00)
[2020-06-08 09:00] VITALS: BP 150/73
[2020-06-08] MEDS: POTASSIUM CHL 20 Meq TABLET PO SCH (10:00)
[2020-06-08] MEDS: LINEZOLID 600MG/300ML 300 ML IV SCH (10:20)
[2020-06-08] MEDS: CARVEDILOL 12.5 MG TAB PO SCH ×2 (10:20→22:05)
[2020-06-08] MEDS: SPIRONOLACTONE 25 MG TAB PO SCH (10:20)
[2020-06-08] MEDS: DIGOXIN 0.125 MG TAB PO SCH (10:21)
[2020-06-08] MEDS: PANTOPRAZOLE 40 MG TAB PO SCH (10:21)
[2020-06-08] MEDS ORDERED: ENOXAPARIN SOD 40 MG/0.4 ML SYRINGE SC SCH (12:15)
[2020-06-08] MEDS ORDERED: ENOXAPARIN SOD 40 MG/0.4 ML SYRINGE SC ONE (12:30)
[2020-06-08 13:00] VITALS: BP 163/86
[2020-06-08] MEDS: hydrALAZINE HCL 20 MG/ML VL IV PRN (13:08)
[2020-06-08 17:00] VITALS: BP 159/79
[2020-06-08 22:00] VITALS: BP 119/63
[2020-06-08] MEDS: INSULIN LANTUS (GLARGINE) 1 /0.01ml (100units/ml) SC SCH (22:00)
[2020-06-08] MEDS: CIPROFLOXACIN HCL 500 MG TAB PO SCH (22:05)
[2020-06-08] MEDS: DOXYCYCLINE 100 MG TAB/CAP PO SCH (22:06)
[2020-06-09 05:00] VITALS: BP 151/72
[2020-06-09] MEDS: MORPHINE SULF INJ 2 MG/ML SYRINGE 1ML IV PRN (05:44)
[2020-06-09] MEDS: InsuLIN REG 1unit/0.01ml Soln (100units/ml) SC SCH ×4 (06:23→21:59)
[2020-06-09] MEDS: ACCU-CHEK COMFORT CURVE STRIP VI SCH ×4 (06:23→21:57)
[2020-06-09] MEDS: Glucerna Carbsteady SHAKE Vanilla 8oz PO SCH ×3 (07:54→18:00)
[2020-06-09 09:00] VITALS: BP 126/72
[2020-06-09] MEDS: DOXYCYCLINE 100 MG TAB/CAP PO SCH ×2 (09:26→21:56)
[2020-06-09] MEDS: ENOXAPARIN SOD 30 MG/0.3 ML SYRINGE SC SCH (09:26)
[2020-06-09] MEDS: PANTOPRAZOLE 40 MG TAB PO SCH (09:26)
[2020-06-09] MEDS: FUROSEMIDE 40 MG TAB PO SCH (09:27)
[2020-06-09] MEDS: DIGOXIN 0.125 MG TAB PO SCH (09:28)
[2020-06-09] MEDS: CIPROFLOXACIN HCL 500 MG TAB PO SCH ×2 (09:28→21:56)
[2020-06-09] MEDS: CARVEDILOL 12.5 MG TAB PO SCH ×2 (09:29→21:56)
[2020-06-09] MEDS: SPIRONOLACTONE 25 MG TAB PO SCH (09:29)
[2020-06-09 12:50] VITALS: BP 149/75
[2020-06-09 17:00] VITALS: BP 134/65
[2020-06-09] MEDS: INSULIN LANTUS (GLARGINE) 1 /0.01ml (100units/ml) SC SCH (21:59)
[2020-06-09 22:00] VITALS: BP 147/83
[2020-06-10 05:00] VITALS: BP 146/83
[2020-06-10] MEDS: ACCU-CHEK COMFORT CURVE STRIP VI SCH ×4 (06:27→21:52)
[2020-06-10] MEDS: InsuLIN REG 1unit/0.01ml Soln (100units/ml) SC SCH ×4 (06:27→22:00)
[2020-06-10 06:50] LABS: Basophils # (auto) 0.1 10 ^3/uL (0-0.2); Basophils % (auto) 0.6 % (0.0-2.0); Eosinophils # (auto) 0.1 10 ^3/uL (0-0.8); Eosinophils % (auto) 1.3 % (0.0-7.0); Hematocrit 36.4 % (41.0-53.0); Lymphocytes # (auto) 1.2 10 ^3/uL (0.4-5.4); Lymphocytes % (auto) 13.6 % (10.0-50.0); Mean Corpuscular Hemoglobin 29.7 pg (28.0-32.0); Mean Corpuscular Hgb Conc. 32.9 g/dL (32.0-36.0); Mean Corpuscular Volume 90.4 fL (80.0-100.0); Monocytes # (auto) 0.6 10 ^3/uL (0-1.3); Monocytes % (auto) 6.8 % (0.0-12.0); Neutrophils # (auto) 6.9 10 ^3/uL (1.6-8.6); Neutrophils % (auto) 77.7 % (37.0-80.0); Nucleated Red Blood Cells % 0.1 %; Platelet Count (auto) 97 10^3/uL (140-450); Red Blood Cells 4.03 10^6/uL (4.5-5.90); Red Cell Distribution Width 14.8 % (11.8-14.3); White Blood Cell 8.9 10^3/uL (4.4-10.8)
[2020-06-10 07:08] LABS: Potassium 4.3 mmol/L (3.5-5.1)
[2020-06-10 07:13] LABS: BUN/Creatinine Ratio 24.1; Calcium 7.9 mg/dL (8.5-10.1)
[2020-06-10] MEDS: Glucerna Carbsteady SHAKE Vanilla 8oz PO SCH ×3 (07:57→17:31)
[2020-06-10 08:41] VITALS: BP 135/74
[2020-06-10] MEDS: SPIRONOLACTONE 25 MG TAB PO SCH (09:51)
[2020-06-10] MEDS: CIPROFLOXACIN HCL 500 MG TAB PO SCH ×2 (09:51→21:52)
[2020-06-10] MEDS: FUROSEMIDE 40 MG TAB PO SCH (09:52)
[2020-06-10] MEDS: DOXYCYCLINE 100 MG TAB/CAP PO SCH ×2 (09:52→21:52)
[2020-06-10] MEDS: PANTOPRAZOLE 40 MG TAB PO SCH (09:52)
[2020-06-10] MEDS: CARVEDILOL 12.5 MG TAB PO SCH ×2 (09:52→21:55)
[2020-06-10] MEDS: ENOXAPARIN SOD 30 MG/0.3 ML SYRINGE SC SCH (09:52)
[2020-06-10] MEDS: metOLazone 5 MG TAB PO SCH (12:00)
[2020-06-10 12:24] VITALS: BP 149/80
[2020-06-10 16:02] VITALS: BP 156/77
[2020-06-10 16:45] VITALS: BP 144/81
[2020-06-10 22:00] VITALS: BP 111/58
[2020-06-10] MEDS: INSULIN LANTUS (GLARGINE) 1 /0.01ml (100units/ml) SC SCH (22:00)
[2020-06-11 05:00] VITALS: BP 144/75
[2020-06-11 05:45] LABS: Albumin 1.5 g/dL (3.4-5.0); Calcium 7.8 mg/dL (8.5-10.1)
[2020-06-11 05:46] LABS: Basophils # (auto) 0 10 ^3/uL (0-0.2); Basophils % (auto) 0.5 % (0.0-2.0); Eosinophils # (auto) 0.1 10 ^3/uL (0-0.8); Eosinophils % (auto) 1.5 % (0.0-7.0); Lymphocytes % (auto) 14.7 % (10.0-50.0); Mean Corpuscular Hemoglobin 30.1 pg (28.0-32.0); Mean Corpuscular Hgb Conc. 33.4 g/dL (32.0-36.0); Mean Corpuscular Volume 90.1 fL (80.0-100.0); Monocytes # (auto) 0.6 10 ^3/uL (0-1.3); Monocytes % (auto) 9.1 % (0.0-12.0); Neutrophils # (auto) 5.3 10 ^3/uL (1.6-8.6); Neutrophils % (auto) 74.2 % (37.0-80.0); Nucleated Red Blood Cells % 0.1 %; Platelet Count (auto) 91 10^3/uL (140-450); Red Blood Cells 3.99 10^6/uL (4.5-5.90); Red Cell Distribution Width 15.3 % (11.8-14.3); White Blood Cell 7.1 10^3/uL (4.4-10.8)
[2020-06-11 05:49] LABS: BUN/Creatinine Ratio 24.5; Bilirubin, Total 1.1 mg/dL (0.2-1.0); Total Protein 5.1 g/dL (6.4-8.2)
[2020-06-11] MEDS: ACCU-CHEK COMFORT CURVE STRIP VI SCH ×4 (06:20→22:00)
[2020-06-11] MEDS: InsuLIN REG 1unit/0.01ml Soln (100units/ml) SC SCH ×4 (06:20→19:53)
[2020-06-11 09:00] VITALS: BP 166/74
[2020-06-11] MEDS: ENOXAPARIN SOD 30 MG/0.3 ML SYRINGE SC SCH (09:32)
[2020-06-11] MEDS: FUROSEMIDE 40 MG TAB PO SCH (09:33)
[2020-06-11] MEDS: DOXYCYCLINE 100 MG TAB/CAP PO SCH ×2 (09:33→23:11)
[2020-06-11] MEDS: SPIRONOLACTONE 25 MG TAB PO SCH (09:33)
[2020-06-11] MEDS: CIPROFLOXACIN HCL 500 MG TAB PO SCH ×2 (09:33→23:12)
[2020-06-11] MEDS: Glucerna Carbsteady SHAKE Vanilla 8oz PO SCH ×3 (09:33→17:50)
[2020-06-11] MEDS: PANTOPRAZOLE 40 MG TAB PO SCH (09:33)
[2020-06-11] MEDS: CARVEDILOL 12.5 MG TAB PO SCH ×2 (09:34→23:12)
[2020-06-11 12:44] VITALS: BP 146/81
[2020-06-11 17:01] VITALS: BP 143/68
[2020-06-11] MEDS: INSULIN LANTUS (GLARGINE) 1 /0.01ml (100units/ml) SC SCH (19:53)
[2020-06-11 20:00] VITALS: BP 146/81
[2020-06-11 21:57] VITALS: BP 156/75
[2020-06-12 05:00] VITALS: BP 110/55
[2020-06-12] MEDS: InsuLIN REG 1unit/0.01ml Soln (100units/ml) SC SCH ×4 (05:33→22:10)
[2020-06-12] MEDS: ACCU-CHEK COMFORT CURVE STRIP VI SCH ×4 (05:34→22:09)
[2020-06-12 06:20] LABS: Basophils # (auto) 0.1 10 ^3/uL (0-0.2); Basophils % (auto) 0.8 % (0.0-2.0); Eosinophils # (auto) 0.1 10 ^3/uL (0-0.8); Eosinophils % (auto) 1.7 % (0.0-7.0); Hematocrit 33.7 % (41.0-53.0); Hemoglobin 11.3 g/dL (13.5-17.5); Lymphocytes # (auto) 1.3 10 ^3/uL (0.4-5.4); Lymphocytes % (auto) 20.7 % (10.0-50.0); Mean Corpuscular Hemoglobin 30.5 pg (28.0-32.0); Mean Corpuscular Hgb Conc. 33.7 g/dL (32.0-36.0); Mean Corpuscular Volume 90.6 fL (80.0-100.0); Monocytes # (auto) 0.9 10 ^3/uL (0-1.3); Monocytes % (auto) 14.5 % (0.0-12.0); Neutrophils # (auto) 3.8 10 ^3/uL (1.6-8.6); Neutrophils % (auto) 62.3 % (37.0-80.0); Platelet Count (auto) 77 10^3/uL (140-450); Red Blood Cells 3.71 10^6/uL (4.5-5.90); White Blood Cell 6.1 10^3/uL (4.4-10.8)
[2020-06-12 06:47] LABS: Potassium 4.1 mmol/L (3.5-5.1)
[2020-06-12 06:54] LABS: BUN/Creatinine Ratio 25.1; Calcium 7.7 mg/dL (8.5-10.1)
[2020-06-12] MEDS: Glucerna Carbsteady SHAKE Vanilla 8oz PO SCH ×3 (08:00→17:10)
[2020-06-12 09:00] VITALS: BP 152/75
[2020-06-12] MEDS: SPIRONOLACTONE 25 MG TAB PO SCH (10:29)
[2020-06-12] MEDS: CIPROFLOXACIN HCL 500 MG TAB PO SCH ×2 (10:29→21:57)
[2020-06-12] MEDS: CARVEDILOL 12.5 MG TAB PO SCH ×2 (10:30→21:57)
[2020-06-12] MEDS: PANTOPRAZOLE 40 MG TAB PO SCH (10:32)
[2020-06-12] MEDS: ENOXAPARIN SOD 30 MG/0.3 ML SYRINGE SC SCH (10:32)
[2020-06-12] MEDS: DOXYCYCLINE 100 MG TAB/CAP PO SCH ×2 (10:32→21:57)
[2020-06-12] MEDS: FUROSEMIDE 40 MG TAB PO SCH (10:33)
[2020-06-12 13:00] VITALS: BP 147/80
[2020-06-12 17:49] VITALS: BP 148/79
[2020-06-12] MEDS: INSULIN LANTUS (GLARGINE) 1 /0.01ml (100units/ml) SC SCH (21:58)
[2020-06-12 22:00] VITALS: BP 145/81
[2020-06-13 04:28] VITALS: BP 162/87
[2020-06-13 05:43] LABS: Basophils # (auto) 0 10 ^3/uL (0-0.2); Basophils % (auto) 0.4 % (0.0-2.0); Eosinophils # (auto) 0.2 10 ^3/uL (0-0.8); Eosinophils % (auto) 1.6 % (0.0-7.0); Hematocrit 34.6 % (41.0-53.0); Hemoglobin 11.5 g/dL (13.5-17.5); Lymphocytes # (auto) 1.4 10 ^3/uL (0.4-5.4); Lymphocytes % (auto) 15.2 % (10.0-50.0); Mean Corpuscular Hemoglobin 30.2 pg (28.0-32.0); Mean Corpuscular Hgb Conc. 33.4 g/dL (32.0-36.0); Mean Corpuscular Volume 90.5 fL (80.0-100.0); Monocytes # (auto) 1.3 10 ^3/uL (0-1.3); Monocytes % (auto) 13.5 % (0.0-12.0); Neutrophils # (auto) 6.6 10 ^3/uL (1.6-8.6); Neutrophils % (auto) 69.3 % (37.0-80.0); Nucleated Red Blood Cells % 0.2 %; Platelet Count (auto) 76 10^3/uL (140-450); Red Blood Cells 3.82 10^6/uL (4.5-5.90); White Blood Cell 9.5 10^3/uL (4.4-10.8)
[2020-06-13 05:57] LABS: BUN/Creatinine Ratio 24.6; Calcium 7.9 mg/dL (8.5-10.1); Potassium 4.2 mmol/L (3.5-5.1)
[2020-06-13] MEDS: ACCU-CHEK COMFORT CURVE STRIP VI SCH ×4 (06:10→22:00)
[2020-06-13] MEDS: InsuLIN REG 1unit/0.01ml Soln (100units/ml) SC SCH ×4 (06:11→22:00)
[2020-06-13] MEDS: Glucerna Carbsteady SHAKE Vanilla 8oz PO SCH ×3 (08:00→18:06)
[2020-06-13 08:52] VITALS: BP 148/75
[2020-06-13] MEDS ORDERED: ENOXAPARIN SOD 40 MG/0.4 ML SYRINGE SC SCH (10:00)
[2020-06-13] MEDS: PANTOPRAZOLE 40 MG TAB PO SCH (10:00)
[2020-06-13] MEDS: SPIRONOLACTONE 25 MG TAB PO SCH (10:00)
[2020-06-13] MEDS: FUROSEMIDE 40 MG TAB PO SCH (10:00)
[2020-06-13] MEDS: CIPROFLOXACIN HCL 500 MG TAB PO SCH ×2 (10:26→21:58)
[2020-06-13] MEDS: DOXYCYCLINE 100 MG TAB/CAP PO SCH ×2 (10:27→21:59)
[2020-06-13] MEDS: CARVEDILOL 12.5 MG TAB PO SCH ×2 (10:27→21:59)
[2020-06-13] MEDS: metOLazone 5 MG TAB PO SCH (12:00)
[2020-06-13 12:40] VITALS: BP 157/73
[2020-06-13 16:41] VITALS: BP 144/66
[2020-06-13] MEDS: INSULIN LANTUS (GLARGINE) 1 /0.01ml (100units/ml) SC SCH (21:59)
[2020-06-13 22:34] VITALS: BP 144/72
== END 2020-06-14 00:50 | DRG 853 ==
LOC: ER 13:10 → TELE 13:11 → TELE-EAST 05-27 17:18 → TELE-WESTW 06-10 15:47
PROVIDERS: ADMIT Family Medicine; ATTEND Internal Medicine
PROC: 05HB33Z Insertion of Infusion Device into Right Basilic Vein, Percutaneous Approach (ICD-10-PCS; 2020-05-31)
PROC: B54MZZA Ultrasonography of Right Upper Extremity Veins, Guidance (ICD-10-PCS; 2020-05-31)
PROC: 0Y6N0Z0 Detachment at Left Foot, Complete, Open Approach (ICD-10-PCS; principal; 2020-06-01 09:03)
DX: A41.9 Sepsis, unspecified organism (principal); A48.0 Gas gangrene; I50.43 Acute on chronic combined systolic (congestive) and diastolic (congestive) heart failure; E43 Unspecified severe protein-calorie malnutrition; N17.0 Acute kidney failure with tubular necrosis; L03.116 Cellulitis of left lower limb; M86.8X7 Other osteomyelitis, ankle and foot; G93.49 Other encephalopathy; I13.0 Hypertensive heart and chronic kidney disease with heart failure and stage 1 through stage 4 chronic kidney disease, or unspecified chronic kidney disease; E11.52 Type 2 diabetes mellitus with diabetic peripheral angiopathy with gangrene; E11.65 Type 2 diabetes mellitus with hyperglycemia; L97.529 Non-pressure chronic ulcer of other part of left foot with unspecified severity; Z20.822 Contact with and (suspected) exposure to COVID-19; I25.10 Atherosclerotic heart disease of native coronary artery without angina pectoris; D63.8 Anemia in other chronic diseases classified elsewhere; E11.22 Type 2 diabetes mellitus with diabetic chronic kidney disease; E11.51 Type 2 diabetes mellitus with diabetic peripheral angiopathy without gangrene; E87.6 Hypokalemia; D69.6 Thrombocytopenia, unspecified; N18.32 Chronic kidney disease, stage 3b; T46.0X5A Adverse effect of cardiac-stimulant glycosides and drugs of similar action, initial encounter; R65.20 Severe sepsis without septic shock; E11.69 Type 2 diabetes mellitus with other specified complication; E78.5 Hyperlipidemia, unspecified; F41.9 Anxiety disorder, unspecified; B96.20 Unspecified Escherichia coli [E. coli] as the cause of diseases classified elsewhere; Z68.35 Body mass index [BMI] 35.0-35.9, adult; Y92.89 Other specified places as the place of occurrence of the external cause; Z88.0 Allergy status to penicillin; Z82.49 Family history of ischemic heart disease and other diseases of the circulatory system; Z83.3 Family history of diabetes mellitus
CPT/HCPCS: 36415; 51702; 70450; 71045; 73700; 80048; 80053; 80162; 81001; 82962; 83036; 83605; 83880; 84443; 84484; 85025; 85610; 85730; 86850; 86900; 86901; 87040; 87070; 87075; 87077; 87081; 87186; 87205; 87426; 90715; 93005; 93886; 93926; 96365; 96367; 96372; 96375; G0378; J1815; J2001; J2185; J2250; J2405; J2543; J2704; J3490